=== PATIENT | male | born 1970 | race Caucasian/White ===

== ENCOUNTER 2024-11-02 14:40 | Outpatient (AMB) | payer OTHER, SELFPAY ==
--- NOTE | 2024-11-02 14:50 | MHC.OFFVIS ---
Vital Signs 11/02/24 14:51 Height 6 ft 1 in Weight 218 lb 4.122 oz BMI 28.8 BP 112/70 Blood Pressure Location Lt brachial Position Sitting Pulse 70 Pulse Source Pulse Oximeter Pulse Oximetry (%) 99 Oxygen Delivery Method Room Air Intake Visit Reasons: Asthma Intake Note: pt is here as a new patient for shortness of breath with exertion, stairs and walking fast, and exercise, he states no drive and no energy Project Drilling Engineer Required: No Allergies No Known Allergies Allergy (Verified 11/02/24 15:19) Medication List - Last Reconciled 11/02/24 by Alonso Massey MD atorvastatin 40 mg PO DAILY tirzepatide (weight loss) (Zepbound) mg subcut Do you need a note to return to daycare/school/sports/work: No HPI HPI Asthma: Details: 54 years old gentleman normally in good health, nonsmoker, reformed alcoholic. Who has been grossly overweight , but in the last 6 months or so he has lost significant weight, with the help of Zepbound. His main complaint is that for the past 6 months or so he gets short of breath when he walks fast or if he has to climb up stairs. He has to slow down his pace. He denies any cough or wheezing . He also denies chest pain or tightness of the chest. Prior to starting on Zepbound he was quite a heavy, his used to tell him that he snores a lot and also has respiratory pauses. Now that he has lost about 40 lb of weight, he does not snore and also no respiratory pauses. These symptoms, which have now almost resolved indicated that he did have obstructive sleep apnea prior to losing weight. He denies any symptoms of nasal allergies. Also denies any symptoms of bronchial asthma. [facility] Medical History (Updated 11/02/24 @ 15:31 by Alonso Massey MD) Obesity (BMI 30.0-34.9) Dyspnea on exertion Social History Patient Tobacco Use Status: Never used Tobacco Review of Systems Const All systems reviewed & are unremarkable except as noted in HPI and below Eyes Reports no additional complaints ENT Reports no additional complaints Card Denies chest pain and Reports dyspnea on exertion Resp Reports as per HPI and Reports dyspnea on exertion GI Reports no additional complaints Reports no additional complaints Musc Reports no additional complaints Skin/Breast Reports system reviewed and no additional complaints, except as documented Neuro Reports no additional complaints Psych Reports no additional complaints Endo Reports no additional complaints Brody/Lymph Reports no additional complaints Aller/Immun Reports no additional complaints Physical Exam Vital Signs: Last Vital Signs Pulse 70 11/02/24 14:51 BP 112/70 11/02/24 14:51 Pulse Ox 99 11/02/24 14:51 Oxygen Delivery Method Room Air 11/02/24 14:51 BMI result Body Mass Index 28.8 Const General: healthy appearing, comfortable, no acute distress, alert and awake Orientation/consciousness: patient oriented x3 HEENT Head: Yes normal to inspection General nose exam: No nasal polyps present and No nasal discharge present Face and sinus: Yes sinuses nontender Mouth: oropharynx abnormals (Narrow and crowded, Mallampati scale 3) Throat: Yes posterior oropharynx normal Eyes General: appearance normal, both eyes and all related structures Neck Neck: Yes normal visual inspection, Yes no lymphadenopathy, Yes trachea midline, Yes no JVD and Yes other (Neck circumference 16-1/2 inch) Thyroid: Thyroid normal Chest Chest palpation & inspection: normal inspection of the chest, normal palpation of entire chest wall and no tenderness Resp Effort & Inspection: normal respiratory effort Auscultation: clear to auscultation bilaterally, no crackles, no rhonchi and no wheezes Cardio Palpation: normal PMI Rate: regular rate Rhythm: regular rhythm Heart sounds: no gallops and no murmurs Peripheral pulses: Peripheral pulses 2+ throughout GI Palpation (GI): Soft to palpation, nontender, No hepatosplenomegaly present and no masses Auscultation: normal bowel sounds Back/Spine/Pelvis Thoracic/Lumbar Spine: thoracic and lumbar spine normal to inspection Skin General skin exam: no rashes or lesions noted Neuro General: patient oriented x3 and no focal motor deficits Cranial nerves: Yes CN's II-XII intact bilaterally Extrem General: Yes normal to inspection, Yes no clubbing, cyanosis or edema and Yes no calf tenderness Psych Appearance: grossly normal and well kempt Speech and movement: Normal speech and movement present Assessment & Plan Assessment & Plan (1) Dyspnea on exertion: Comment: His described dyspnea on exertion is very nonspecific. Possibilities can include , , anemia , poor conditioning, occult bronchial asthma, exertion related Code(s): R06.09 - Other forms of dyspnea Category: Medical Plan: Pulmonary function test is ordered. Chest x-ray ordered to rule out any parenchymal lung disease. CBC order to rule out anemia. Further plans are instructions would be after pulmonary function test. (2) Obesity (BMI 30.0-34.9): Comment: This gentleman does have history of gross obesity. And that was probably associated with his snoring and possible sleep apnea. Now he has lost significant weight and has only minimal degree of snoring, but no indication of sleep apnea Code(s): E66.811 - Obesity, class 1 Category: Medical Plan: I explained to him that he has done a great job in losing weight. He is advised to continue losing more weight Orders: Orders XR chest 2V Today R06.09 - Other forms of dyspnea PFT pulmonary function test Today R06.09 - Other forms of dyspnea Complete Blood Count Auto Diff Today R06.09 - Other forms of dyspnea Coding Level of Care Code New Pt Level 4 (09237) Diagnoses Dyspnea on exertion R06.09 Obesity (BMI 30.0-34.9) E66.811
[2024-11-02 14:51] VITALS: BP 112/70; PULSE 70; O2SAT 99; BMI 28.8
--- OUTSIDE RECORDS SUMMARY | 2024-11-02 16:58 | XMS_ITS | Patient Health Record ---
Author Organization [facility] [address] Address [address] [place] [address] Care Team Providers Care Profiler Hand Name Role Phone DANNI DARBY Unavailable [phone] BJORN LOPES Unavailable [phone] Allergies No Known Allergies Results Component Value Reference Range Notes VITAMIN D 1,25 DIHYDROXY Reviewed date:08/02/2024 06:51:05 PM Interpretation: Performing Lab: Notes/Report: Vitamin D, 1, 25-Dihydroxy 68 20-79 pg/mL Vitamin D 1, 25 dihydroxy levels should be primarily used to assess Vitamin D status in patients with renal disease and hypercalcemia. Vitamin D 1,25-dihydroxy levels are generally less than 5 pg/mL in end stage renal disease patients. The preferred initial test for assessing Vitamin D status in the general population is Vitamin D 25-hydroxy (VITD). Test performed at [facility], [facility] [place] [address] La Kaur MD, PhD - Form Tamper Operator [facility] TOTAL Reviewed date:07/30/2024 01:55:08 PM Interpretation: Performing Lab: Notes/Report: T4, Total 8.2 4.5-10.9 mcg/dL URINALYSIS WITH REFLEX MICRO SCOPIC Reviewed date:07/30/2024 01:55:08 PM Interpretation: Performing Lab: Notes/Report: Specific Jeffrey Urine 1.027 1.003-1.030 pH, Urine 5.5 5.0-8.0 pH Leukocytes, Urine Negative Negative Nitrite, Urine Negative Negative Protein, Urine Negative <=Trace mg/dL Glucose, Urine Negative Negative mg/dL Ketones, Urine Trace Negative mg/dL Urobilinogen, Urine 0.2 0.2-1.0 mg/dL Bilirubin, Urine Negative Negative Blood, Urine Negative Negative PSA TOTAL, FREE AND COMPLEXE D Reviewed date:07/30/2024 01:55:08 PM Interpretation: Performing Lab: Notes/Report: Free PSA is a calculated value. The diagnostic usefulness of % free PSA has not been established in patients with Total PSA below 2.6 or above 10 ng/mL. This test was performed using the Centaur Chemiluminescent method. PSA values obtained with other methods cannot be used interchangeably. PSA 0.53 0.00-4.00 ng/mL PSA, Complexed 0.32 0.00-3.00 ng/mL PSA, Free 0.2 PSA, Free Pct 37.7 >25.0 % HEMOGLOBIN A1C Reviewed date:07/30/2024 01:55:08 PM Interpretation: Performing Lab: Notes/Report: Hemoglobin A1C 5.7 <6.5 % Mean Bld Glu Estim. 117 COMPREHENSIVE METABOLIC PANE L Reviewed date:07/30/2024 01:55:08 PM Interpretation: Performing Lab: Notes/Report: Sodium 141 133-145 mmol/L Potassium 4.2 3.5-5.5 mmol/L Chloride 109 96-110 mmol/L CO2 27 21-32 mmol/L Anion Gap 5 3-11 Glucose 87 70-100 mg/dL BUN 17 5-25 mg/dL Creatinine 1.08 0.70-1.30 mg/dL eGFR 82 >=60 mL/min/1.73m2 Calculati on based on the?Chronic Kidney Disease Epidemiology Collaboration (CKD-EPI) equation refit?without adjustment for race. BUN/Creatinine Ratio 15.7 Calcium 9.4 8.5-10.5 mg/dL AST (SGOT) 19 10-42 unit/L ALT (SGPT) 39 10-60 unit/L Alkaline Phosphatase 102 42-121 unit/L Total Protein 7.1 6.0-8.0 g/dL Albumin 4.1 3.2-5.0 g/dL Total Bilirubin 0.4 0.0-1.4 mg/dL THYROID STIMULATING HORMONE Reviewed date:07/30/2024 01:55:08 PM Interpretation: Performing Lab: Notes/Report: TSH 3.80 0.40-4.00 mcIU/mL LIPID PANEL WITH REFLEX TO D IRECT LDL Reviewed date:07/30/2024 01:55:08 PM Interpretation: Performing Lab: Notes/Report: Cholesterol 102 0-200 mg/dL Triglycerides 59 0-150 mg/dL HDL 44 >=40 mg/dL LDL Calculated 46 0-100 mg/dL VLDL Cholesterol Lucas 11.8 Non HDL Chol. (LDL+VLDL) 58 <145 mg/dL Chol/HDL Ratio 2.3 0.0-4.4 CBC WITH AUTO DIFFERENTIAL Reviewed date:07/30/2024 11:01:21 AM Interpretation: Performing Lab: Notes/Report: WBC 5.7 4.8-10.8 K/mcL RBC 5.20 4.50-5.50 M/mcL Hemoglobin 15.2 13.5-17.5 g/dL Hematocrit 46.3 42.0-54.0 % MCV 88.5 79.0-98.0 FL MCH 29.1 27.0-32.0 pcg MCHC 32.8 32.0-37.0 g/dL RDW 12.3 11.0-15.0 % Platelets 222 130-400 K/mcL MPV 10.2 7.0-11.0 FL NRBC 0.0 <1.0 % NRBC Absolute 0.00 <0.10 K/mcL Neutrophils Relative 63.8 Lymphocytes Relative 27.2 Monocytes Relative 7.3 Eosinophils Relative 0.9 Basophils Relative 0.5 Immature Granulocytes Relative 0.3 Neutrophils Absolute 3.66 1.50-7.00 K/mcL Lymphocytes Absolute 1.56 1.00-5.00 K/mcL Monocytes Absolute 0.42 0.20-1.00 K/mcL Eosinophils Absolute 0.05 0.00-0.50 K/mcL Basophils Absolute 0.03 0.00-0.20 K/mcL Immature Granulocytes Absolute 0.02 0.00-0.03 K/mcL MR Abdomen W WO Reviewed date:02/23/2024 02:58:15 PM Interpretation: Performing Lab: Notes/Report: Original Ordering Provider: DANNI DARBY NP [facility] Reason For Referral Reason Stress ECHO with PVC Diagnosis 1 SOB (shortness of br eath) (R06.02) Referral Organization [facility] [address] Referring Provider First Name BJORN Referring Provider Last Name MOSES Referring Provider Speciality Internal M edicine Referred Provider Specialty Cardiology General Notes [facility], [address] [place] [address]; [facility], [place], [phone], F [phone] Clinical Notes Rafaela Wilburn 2024 11:02:30 AM >Referral with notes and labs sent to [facility]., Raúl Murcia 10/28/2024 03:35:38 PM > lines are temporarily busy., Raúl Murcia 11/02/2024 01:01:52 PM > [phone]. Nasima, 10/28 patient cancelled, was scheduled with another facility. I called patient and he said he did not cancelled the appt but someone in our office cancelled it. I will text to patient the number of PVC to book an appt because he's driving. Referral Priority Routine Reason PFT with [facility] Diagnosis 1 Dyspnea, unspecified (R06.00) Referral Organization [facility] [address] Referring Provider First Name BJORN Referring Provider Last Name MOSES Referring Provider Speciality Internal M edicine Referred Provider Specialty Pulmonology General Notes [facility], [address] [place] [address]; [facility], [place] , P [phone], F [phone] Clinical Notes Rafaela Wilburn 2024 10:57:30 AM >Referral with notes and labs sent to [facility]. TY., Raúl Murcia 10/28/2024 03:39:17 PM >[phone] [phone]. Refaxed twice, Raúl Murcia 11/02/2024 01:11:12 PM > As per patient. He has an appt today 11/02/24. Referral Priority Routine Medications Medication SIG (Take, Route, Frequency, Duration) Notes Start Date End Date Status Atorvastatin Calcium 40 MG 1 tablet Oral ly Once a day for 90 days Active Zepbound 7.5 MG/0.5ML INJECT 7.5MG SUBCU TANEOUS WEEKLY 28 DAYS for 28 Active Problems Problem Type SNOMED Code ICD Code Onset Dates Problem Status W/U Status Risk Notes Problem 304259178 Other obesity du e to excess calories (E66.09) Active confirmed Problem 124669006 Encounter for general adult medical examination without abnormal findings (Z00.00) Active confirmed Problem Lipid screening (991005770) Encounter for screening for lipoid disorders (Z13.220) Active confirmed Problem 70464498 Hyperlipidemia, unspecified hyperlipidemia type (E78.5) Active confirmed Problem 50087245 Vitamin D deficiency (E55.9) Active confirmed Problem 420972941 Diabetes mellitu s screening (Z13.1) Active confirmed Problem 607458376 Body mass index [BMI] 33.0-33.9, adult (Z68.33) Active confirmed Problem Mixed hyperlipidemia (102688696) Hyperlipemia, mixed (E78.2) Active confirmed Problem 524710778 BMI 31.0-31.9,adult (Z68.31) Active confirmed Problem 737232671 BMI 30.0-30.9,adult (Z68.30) Active confirmed Problem 304064757 Overweight (BMI 25.0-29.9) (E66.3) Active confirmed Problem 951896049060 Daytime somnolence (R40.0) Active confirmed Problem Hypothyroidism (69157458) Adult hypothyroidism (E03.9) Active confirmed Problem Screening for malignant neoplasm of prostate (153176020) Encounter for prostate cancer screening (Z12.5) Active confirmed Problem 5926340 Pancreatic lesio n (K86.9) Active confirmed Vital Signs Heart Rate 79 /min 10/09/2024 Oximetry 97 % 10/09/2024 Blood pressure diastolic 84 mm Hg 10/09/2024 Height 72 in 10/09/2024 Blood pressure systolic 124 mm Hg 10/09/2024 Weight 208.9 lbs 10/09/2024 BMI 28.33 kg/m2 10/09/2024 Encounters Encounter Location Date Provider Diagnosis [facility] [address] [place] [id number] 02/13/2024 DANNI DARBY Hyperlipidemia, unspecified hyperlipidemia type E78.5 ; Annual physical exam Z00.00 ; Other obesity due to excess calories E66.09 ; Body mass index [BMI] 33.0-33.9, adult Z68.33 ; Other fatigue R53.83 and Pancreatic lesion K86.[address] [facility] [address] [place] [address] 02/21/2024 DANNI DARBY Other obesity due to excess calories E66.09 ; Body mass index [BMI] 33.0-33.9, adult Z68.33 ; Dietary counseling and surveillance Z71.3 ; Hyperlipidemia, unspecified hyperlipidemia type E78.5 ; Pancreatic lesion K86.9 and Prediabetes R73.[address] [facility] [address] [place], [place] 03/20/2024 DANNI BORHOT Other obesity due to excess calories E66.09 ; BMI 31.0-31.9,adult Z68.31 ; Dietary counseling and surveillance Z71.3 ; Hyperlipidemia, unspecified hyperlipidemia type E78.5 ; Pancreatic lesion K86.9 and Prediabetes R73.[address] [facility] [address] [place], [place] 04/24/2024 DANNI BORHOT Other obesity due to excess calories E66.09 ; BMI 30.0-30.9,adult Z68.30 ; Dietary counseling and surveillance Z71.3 ; Hyperlipidemia, unspecified hyperlipidemia type E78.5 ; Pancreatic lesion K86.9 and Prediabetes R73.[address] [facility] [address] [place], [place] 05/22/2024 DANNI BORHOT Overweight (BMI 25.0-29.9) E66.3 ; BMI 29.0-29.9,adult Z68.29 ; Dietary counseling and surveillance Z71.3 ; Hyperlipidemia, unspecified hyperlipidemia type E78.5 ; Pancreatic lesion K86.9 and Prediabetes R73.[address] [facility] [address] [place], [place] 06/26/2024 DANNI BORHOT Overweight (BMI 25.0-29.9) E66.3 ; BMI 29.0-29.9,adult Z68.29 ; Dietary counseling and surveillance Z71.3 ; Hyperlipidemia, unspecified hyperlipidemia type E78.5 ; Pancreatic lesion K86.9 and Prediabetes R73.03 [facility] [address] [place] [phone] 07/30/2024 DANNI BORHOT Overweight (BMI 25.0-29.9) E66.3 ; BMI 29.0-29.9,adult Z68.29 ; Dietary counseling and surveillance Z71.3 ; Hyperlipidemia, unspecified hyperlipidemia type E78.5 ; Pancreatic lesion K86.9 and Prediabetes R73.[address] [facility] [address] [place], [place] 08/28/2024 DANNICAMILLA MARTINEZT Overweight (BMI 25.0-29.9) E66.3 ; BMI 29.0-29.9,adult Z68.29 ; Dietary counseling and surveillance Z71.3 ; Hyperlipidemia, unspecified hyperlipidemia type E78.5 ; Pancreatic lesion K86.9 ; Prediabetes R73.03 and MEI (dyspnea on exertion) R06.[address] [facility] [address] [place], [place] 10/09/2024 BJORN MOSES Overweight (BMI 25.0-29.9) E66.3 ; BMI 28.0-28.9,adult Z68.28 ; Prediabetes R73.03 ; Dietary counseling and surveillance Z71.3 ; Hyperlipidemia, unspecified hyperlipidemia type E78.5 ; Pancreatic lesion K86.9 and MEI (dyspnea on exertion) R06.09 [facility] [address] [phone] 02/16/2024 DANNI MARTINEZT Pancreatic lesion K8 6.9 [facility] [address] [phone] 02/24/2024 DANNI BORHOT [facility] [address] [address] 03/02/2024 DANNI MARTINEZT Other obesity due to excess calories E66.09 [facility] [address] [facility] [address] [phone] 05/31/2024 DANNI BORHOT [facility] [address] [place], [place] 06/10/2024 DANNI BORHOT [facility] [address] [place], [place] 08/28/2024 DANNI BORHOT [facility] [address] [place], [place] 10/09/2024 BJORN LOPES Assessments Encounter Date Diagnosis (ICD Code) Assessment Notes Treatment Notes Treatment Clinical Notes Section Notes 02/13/2024 Hyperlipidemia, unspecified hyperlipidemia type (ICD-10 - E78.5) Acute Concerns/Problem List: 02/13/2024 Labs otherwise stable *We will follow-up and make sure MRI of the abdomen with contrast to assess pancreatic lesion gets done Interested in formal weight management consult this will be arranged Will see him back in 6 months with labs ASCVD is a stepwise approach for all adult patients, including those with known ASCVD This risk estimate is a standardized guideline to predict risk and recommend management strategies for those at risk of ASCVD Risk of cardiovascular event (Coronary or stroke or nonfatal ME or stroke) In the next 10 years We discussed the role of cholesterol and atherosclerosis. Cholesterols broken down into some particles. Cholesterol very important for her body and has an important role in the synthesis of various hormones and neurotransmitters. However, today's cholesterol can have potential complications. Small density LDL particles that are oxidized or particularly dangerous. HDL cholesterol can have a protective effect. Elevated triglycerides levels are also dangerous. An elevated triglyceride and HDL ratio could be a sign of insulin resistance. Statins, fibrates, niacin, fish oil, DHEA, can be beneficial in treatment of dyslipidemia. Lifestyle modification with exercise and appropriate nutrition can decrease the risk of atherosclerosis due to dyslipidemia. Lowering low-density lipoprotein cholesterol (LDL-C) via lifestyle change or pharmacologic therapy can reduce the risk of atherosclerotic cardiovascular disease (ASCVD) in people without established CVD. This approach to CVD prevention is called primary prevention. The rationale for LDL-C reduction is based upon observational and clinical trial evidence that lowering of LDL-C in patients across a broad range of LDL-C levels reduces a patient's risk of CVD. CVD in this context refers to fatal or nonfatal myocardial infarction, acute coronary syndrome, sudden cardiac , coronary artery revascularization, stroke, and peripheral arterial disease. In all patients, a healthy diet, physical activity, and maintaining a healthy weight are all important for overall health and should be pursued apart from whether they reduce LDL-C. Therefore, we recommend that all patients with high LDL-C undergo lifestyle modifications of aerobic exercise and potential statin, , Zetia, PCSK9 drugs. We discussed in detail the management of diabetes mellitus. Emphasis was paid on nutrition, low carbohydrate diet with good fat and protein sources, fruits and vegetables was discussed. Exercise was recommended. Incorporation of daily walking into a routine was discussed. A pedometer goal of 10,000 steps was discussed. Management of diabetes mellitus along with medications to treat the condition was discussed. Importance of diabetic foot exam, diabetic eye exam, urine microalbumin analysis annually was discussed. Side effects of diabetic medications were discussed again. Patient agrees to take medications as prescribed and comply with lifestyle modifications. Of note, some information is being carried forward from prior records for informational purposes only and is being cited so that efficiency, safety and quality of the patient's care is not compromised This note was prepared using voice recognition software and direct typing Please excuse inadvertent solution sales senior executive or typing errors, or uncorrected word substitutions Although every attempt has been made by the provider to proofread this document, occasional misspellings and typographical errors may still be present Due to the previous pandemic, and the use of personal protective equipment (PPE) This may decrease voice recognition accuracy Inadvertent solution sales senior executive errors may occur 02/13/2024 Annual physical exam (ICD-10 - Z00.00) Acute Concerns/Problem List: 02/13/2024 Labs otherwise stable *We will follow-up and make sure MRI of the abdomen with contrast to assess pancreatic lesion gets done Interested in formal weight management consult this will be arranged Will see him back in 6 months with labs ASCVD is a stepwise approach for all adult patients, including those with known ASCVD This risk estimate is a standardized guideline to predict risk and recommend management strategies for those at risk of ASCVD Risk of cardiovascular event (Coronary or stroke or nonfatal ME or stroke) In the next 10 years We discussed the role of cholesterol and atherosclerosis. Cholesterols broken down into some particles. Cholesterol very important for her body and has an important role in the synthesis of various hormones and neurotransmitters. However, today's cholesterol can have potential complications. Small density LDL particles that are oxidized or particularly dangerous. HDL cholesterol can have a protective effect. Elevated triglycerides levels are also dangerous. An elevated triglyceride and HDL ratio could be a sign of insulin resistance. Statins, fibrates, niacin, fish oil, DHEA, can be beneficial in treatment of dyslipidemia. Lifestyle modification with exercise and appropriate nutrition can decrease the risk of atherosclerosis due to dyslipidemia. Lowering low-density lipoprotein cholesterol (LDL-C) via lifestyle change or pharmacologic therapy can reduce the risk of atherosclerotic cardiovascular disease (ASCVD) in people without established CVD. This approach to CVD prevention is called primary prevention. The rationale for LDL-C reduction is based upon observational and clinical trial evidence that lowering of LDL-C in patients across a broad range of LDL-C levels reduces a patient's risk of CVD. CVD in this context refers to fatal or nonfatal myocardial infarction, acute coronary syndrome, sudden cardiac , coronary artery revascularization, stroke, and peripheral arterial disease. In all patients, a healthy diet, physical activity, and maintaining a healthy weight are all important for overall health and should be pursued apart from whether they reduce LDL-C. Therefore, we recommend that all patients with high LDL-C undergo lifestyle modifications of aerobic exercise and potential statin, , Zetia, PCSK9 drugs. We discussed in detail the management of diabetes mellitus. Emphasis was paid on nutrition, low carbohydrate diet with good fat and protein sources, fruits and vegetables was discussed. Exercise was recommended. Incorporation of daily walking into a routine was discussed. A pedometer goal of 10,000 steps was discussed. Management of diabetes mellitus along with medications to treat the condition was discussed. Importance of diabetic foot exam, diabetic eye exam, urine microalbumin analysis annually was discussed. Side effects of diabetic medications were discussed again. Patient agrees to take medications as prescribed and comply with lifestyle modifications. Of note, some information is being carried forward from prior records for informational purposes only and is being cited so that efficiency, safety and quality of the patient's care is not compromised This note was prepared using voice recognition software and direct typing Please excuse inadvertent solution sales senior executive or typing errors, or uncorrected word substitutions Although every attempt has been made by the provider to proofread this document, occasional misspellings and typographical errors may still be present Due to the previous pandemic, and the use of personal protective equipment (PPE) This may decrease voice recognition accuracy Inadvertent solution sales senior executive errors may occur 02/16/2024 Pancreatic lesion (ICD-10 - K86.9) 02/21/2024 Other obesity due to excess calories (ICD-10 - E66.09) #Weight Management 02/21/2024 Follow-up on MRI of the abdomen to assess pancreatic lesion Start Zepbound 2.5 mg Severance candidate for dual incretin given prediabetic state and metabolic syndrome, obesity BMI Total time spent today was 30 minutes of which greater than 50% was spent on coordinating and counseling Patient has been found to be obese with a BMI of (32). Patient has class (1) obesity. We are a board certified obesity and weight management practice Patient has trialed behavioral modification, dietary restrictions and exercise for a minimum of 6 months The most recent [place] [employer] of clinical endocrinologists and [place] [employer] guidelines recommend patients who have overweight BMI or obesity BMI, who also have metabolic syndrome, prediabetes, HLD, and other comorbidities or at risk of developing type 2 diabetes should aim for a weight loss goal of at least 10% of the baseline body weight Patient counseled regarding effects of GLP/GIP-1 agonists, and other FDA approved wgt loss meds with regards to a multifactorial approach of weight loss as mentioned above and not solely appetite suppression. We have discussed the mechanism of GLP-1's/GIP, dual incretins, appetitite suppressants I think this would be fantastic option for her given her metabolic workup and body composition We have discussed the risks and benefits and side effects including/and not limited to Sarcopenia, intestinal obstruction, constipation, nausea, lethargy, headache Discussed importance of protein consumption for muscle maintenance as well as strength and resistance training ,probiotics, B12 complex biotin , iron and other nutrients, To help avoid telogen effluvium We have discussed the lifelong requirement of nutritional supplementation And adherence to an exercise regimen as well as importance of follow-up We did discuss the neurohormonal changes that are occurring with these medications and Need for long-term Continued usage Obesity is a chronic metabolic disease with multiple etiologies including genetic, metabolic, biochemical, intestinal biome related treatment of obesity after weight gain or after weight loss has stopped is justified Studies have shown that there is a decrease in the bodies metabolic rate and increase in hunger The patient understands and agrees There is no history of medullary thyroid cancer or multiple endocrine neoplasia There is also no history of cardiovascular disease, hypertension, palpitations, or arrhythmias In the setting of potential stimulant/amphetamin e use such as phentermine We have also discussed risks and benefits, and the use of compounded medications to help offset the national shortages as well as financial implications vs trade name drugs Patient was reassured and welcomed to the practice. We discussed that we stress a hollistic medical approach with emphasis on lifestyle modification. Patient was informed that a healthy lifestyle with exercise and good eating habits can help reduce his risk of medical complications. He is explained that obesity increases his risk of diabetes, cardiovascular disease, or organ damage. We spent a lot of time discussing the relationship between food, exercise, sleep, mental health and obesity. Patient was counseled on the importance EATING local, organic food when possible. Patient was educated on clean 15 and dirty dozen. I provided information about reading books called The Food Rules by Mike Gaming and Eat Fat Get Lean by Dr Mik Mckeon. Self education is important in the journey for weight management. Encourage good sleep hygiene Optimize sleep/wake cycles 6-8 hours nightly Keep lights on his stimulus during the day Darkroom and minimize nighttime interruptions Continue melatonin, other sleep aid medications Patient was offered diagnostic testing. We want to measure visceral adiposity, advanced body composition, adverse lipids, fatty acid balance, risk for heart disease and atherosclerosis, markers of inflammation and genetic susceptibility. Patient was counseled on weight management and was advised to lose weight using A. Meal Replacement Products We discussed the lifelong requirement of nutritional supplementation and adherence to an exercise regimen as well as importance of dietary follow-up Patient was educated on the replacement products called optifast. This is a good way of taking fixed amount of calories. It has been shown in studies to be ineffective weight management tool. We also recommend maintaining adequate protein intake and muscle composition, 1.5mg/kg This however has to be coupled with lifestyle intervention as well as laboratory data and EKG monitoring. It is impossible to know how a person will tolerate complete meal replacement. The side effects of meal replacement and weight loss could include syncopal attacks, dizziness, gallstones, potential cholecystectomy, possible heart attack and even . The benefits of meal replacement would be potential weight loss but no guarantees can be made. Meal replacement products are not covered by insurance. Once the patient has bought these products we cannot return them B. Lifestyle management which includes several strategies as below 1. Eat a low carbohydrate good fat good protein diet. Eliminate refined carbohydrates from the diet. Continue blood sugar and sugared beverages. Eat local organic when possible. Cook your own meals. Read food labels. None about healthy snacks. Portion control and food with low glycemic index 2. Exercise regularly. Try to get at least 6000 steps a day. Use a predominant to track activity level. Consider using apps like En[employer]zni, myfitnesspal, lose it, stick as needed for self-monitoring and weight management. Consider group exercises. Consider hiring a personal lines account executive. Regular exercise is mercado to sustainable health and prevents as a buffer against weight regain 3. Sleep is most important for healing. Tried to sleep at least 8 hours a night. A good quality sleep needs a sleep ritual with ideal room temperature of around 68. It might help to take a shower and have no electronics in the room and sleep in a very dark room without artificial light. Start her sleep routine and get up early in the morning and go to bed on time ASCVD is a stepwise approach for all adult patients, including those with known ASCVD This risk estimate is a standardized guideline to predict risk and recommend management strategies for those at risk of ASCVD Risk of cardiovascular event (Coronary or stroke or nonfatal ME or stroke) In the next 10 years We discussed the role of cholesterol and atherosclerosis. Cholesterols broken down into some particles. Cholesterol very important for her body and has an important role in the synthesis of various hormones and neurotransmitters. However, today's cholesterol can have potential complications. Small density LDL particles that are oxidized or particularly dangerous. HDL cholesterol can have a protective effect. Elevated triglycerides levels are also dangerous. An elevated triglyceride and HDL ratio could be a sign of insulin resistance. Statins, fibrates, niacin, fish oil, DHEA, can be beneficial in treatment of dyslipidemia. Lifestyle modification with exercise and appropriate nutrition can decrease the risk of atherosclerosis due to dyslipidemia. Lowering low-density lipoprotein cholesterol (LDL-C) via lifestyle change or pharmacologic therapy can reduce the risk of atherosclerotic cardiovascular disease (ASCVD) in people without established CVD. This approach to CVD prevention is called primary prevention. The rationale for LDL-C reduction is based upon observational and clinical trial evidence that lowering of LDL-C in patients across a broad range of LDL-C levels reduces a patient's risk of CVD. CVD in this context refers to fatal or nonfatal myocardial infarction, acute coronary syndrome, sudden cardiac , coronary artery revascularization, stroke, and peripheral arterial disease. In all patients, a healthy diet, physical activity, and maintaining a healthy weight are all important for overall health and should be pursued apart from whether they reduce LDL-C. Therefore, we recommend that all patients with high LDL-C undergo lifestyle modifications of aerobic exercise and potential statin, , Zetia, PCSK9 drugs. We discussed in detail the management of diabetes mellitus. Emphasis was paid on nutrition, low carbohydrate diet with good fat and protein sources, fruits and vegetables was discussed. Exercise was recommended. Incorporation of daily walking into a routine was discussed. A pedometer goal of 10,000 steps was discussed. Management of diabetes mellitus along with medications to treat the condition was discussed. Importance of diabetic foot exam, diabetic eye exam, urine microalbumin analysis annually was discussed. Side effects of diabetic medications were discussed again. Patient agrees to take medications as prescribed and comply with lifestyle modifications. Of note, some information is being carried forward from prior records for informational purposes only and is being cited so that efficiency, safety and quality of the patient's care is not compromised This note was prepared using voice recognition software and direct typing Please excuse inadvertent solution sales senior executive or typing errors, or uncorrected word substitutions Although every attempt has been made by the provider to proofread this document, occasional misspellings and typographical errors may still be present Due to the previous pandemic, and the use of personal protective equipment (PPE) This may decrease voice recognition accuracy Inadvertent solution sales senior executive errors may occur 02/21/2024 Body mass index [BMI] 33.0-33.9, adult (ICD-10 - Z68.33) #Weight Management 02/21/2024 Follow-up on MRI of the abdomen to assess pancreatic lesion Start Zepbound 2.5 mg Severance candidate for dual incretin given prediabetic state and metabolic syndrome, obesity BMI Total time spent today was 30 minutes of which greater than 50% was spent on coordinating and counseling Patient has been found to be obese with a BMI of (32). Patient has class (1) obesity. We are a board certified obesity and weight management practice Patient has trialed behavioral modification, dietary restrictions and exercise for a minimum of 6 months The most recent [place] [employer]ocrin[employer] and [place] [employer] guidelines recommend patients who have overweight BMI or obesity BMI, who also have metabolic syndrome, prediabetes, HLD, and other comorbidities or at risk of developing type 2 diabetes should aim for a weight loss goal of at least 10% of the baseline body weight Patient counseled regarding effects of GLP/GIP-1 agonists, and other FDA approved wgt loss meds with regards to a multifactorial approach of weight loss as mentioned above and not solely appetite suppression. We have discussed the mechanism of GLP-1's/GIP, dual incretins, appetitite suppressants I think this would be fantastic option for her given her metabolic workup and body composition We have discussed the risks and benefits and side effects including/and not limited to Sarcopenia, intestinal obstruction, constipation, nausea, lethargy, headache Discussed importance of protein consumption for muscle maintenance as well as strength and resistance training ,probiotics, B12 complex biotin , iron and other nutrients, To help avoid telogen effluvium We have discussed the lifelong requirement of nutritional supplementation And adherence to an exercise regimen as well as importance of follow-up We did discuss the neurohormonal changes that are occurring with these medications and Need for long-term Continued usage Obesity is a chronic metabolic disease with multiple etiologies including genetic, metabolic, biochemical, intestinal biome related treatment of obesity after weight gain or after weight loss has stopped is justified Studies have shown that there is a decrease in the bodies metabolic rate and increase in hunger The patient understands and agrees There is no history of medullary thyroid cancer or multiple endocrine neoplasia There is also no history of cardiovascular disease, hypertension, palpitations, or arrhythmias In the setting of potential stimulant/amphetamin e use such as phentermine We have also discussed risks and benefits, and the use of compounded medications to help offset the national shortages as well as financial implications vs trade name drugs Patient was reassured and welcomed to the practice. We discussed that we stress a hollistic medical approach with emphasis on lifestyle modification. Patient was informed that a healthy lifestyle with exercise and good eating habits can help reduce his risk of medical complications. He is explained that obesity increases his risk of diabetes, cardiovascular disease, or organ damage. We spent a lot of time discussing the relationship between food, exercise, sleep, mental health and obesity. Patient was counseled on the importance EATING local, organic food when possible. Patient was educated on clean 15 and dirty dozen. I provided information about reading books called The Food Rules by Mike Gaming and Eat Fat Get Lean by Dr Mik Mckeon. Self education is important in the journey for weight management. Encourage good sleep hygiene Optimize sleep/wake cycles 6-8 hours nightly Keep lights on his stimulus during the day Darkroom and minimize nighttime interruptions Continue melatonin, other sleep aid medications Patient was offered diagnostic testing. We want to measure visceral adiposity, advanced body composition, adverse lipids, fatty acid balance, risk for heart disease and atherosclerosis, markers of inflammation and genetic susceptibility. Patient was counseled on weight management and was advised to lose weight using A. Meal Replacement Products We discussed the lifelong requirement of nutritional supplementation and adherence to an exercise regimen as well as importance of dietary follow-up Patient was educated on the replacement products called optifast. This is a good way of taking fixed amount of calories. It has been shown in studies to be ineffective weight management tool. We also recommend maintaining adequate protein intake and muscle composition, 1.5mg/kg This however has to be coupled with lifestyle intervention as well as laboratory data and EKG monitoring. It is impossible to know how a person will tolerate complete meal replacement. The side effects of meal replacement and weight loss could include syncopal attacks, dizziness, gallstones, potential cholecystectomy, possible heart attack and even . The benefits of meal replacement would be potential weight loss but no guarantees can be made. Meal replacement products are not covered by insurance. Once the patient has bought these products we cannot return them B. Lifestyle management which includes several strategies as below 1. Eat a low carbohydrate good fat good protein diet. Eliminate refined carbohydrates from the diet. Continue blood sugar and sugared beverages. Eat local organic when possible. Cook your own meals. Read food labels. None about healthy snacks. Portion control and food with low glycemic index 2. Exercise regularly. Try to get at least 6000 steps a day. Use a predominant to track activity level. Consider using apps like Engezni, Geckoboardpal, lose it, stick as needed for self-monitoring and weight management. Consider group exercises. Consider hiring a personal lines account executive. Regular exercise is mercado to sustainable health and prevents as a buffer against weight regain 3. Sleep is most important for healing. Tried to sleep at least 8 hours a night. A good quality sleep needs a sleep ritual with ideal room temperature of around 68. It might help to take a shower and have no electronics in the room and sleep in a very dark room without artificial light. Start her sleep routine and get up early in the morning and go to bed on time ASCVD is a stepwise approach for all adult patients, including those with known ASCVD This risk estimate is a standardized guideline to predict risk and recommend management strategies for those at risk of ASCVD Risk of cardiovascular event (Coronary or stroke or nonfatal ME or stroke) In the next 10 years We discussed the role of cholesterol and atherosclerosis. Cholesterols broken down into some particles. Cholesterol very important for her body and has an important role in the synthesis of various hormones and neurotransmitters. However, today's cholesterol can have potential complications. Small density LDL particles that are oxidized or particularly dangerous. HDL cholesterol can have a protective effect. Elevated triglycerides levels are also dangerous. An elevated triglyceride and HDL ratio could be a sign of insulin resistance. Statins, fibrates, niacin, fish oil, DHEA, can be beneficial in treatment of dyslipidemia. Lifestyle modification with exercise and appropriate nutrition can decrease the risk of atherosclerosis due to dyslipidemia. Lowering low-density lipoprotein cholesterol (LDL-C) via lifestyle change or pharmacologic therapy can reduce the risk of atherosclerotic cardiovascular disease (ASCVD) in people without established CVD. This approach to CVD prevention is called primary prevention. The rationale for LDL-C reduction is based upon observational and clinical trial evidence that lowering of LDL-C in patients across a broad range of LDL-C levels reduces a patient's risk of CVD. CVD in this context refers to fatal or nonfatal myocardial infarction, acute coronary syndrome, sudden cardiac , coronary artery revascularization, stroke, and peripheral arterial disease. In all patients, a healthy diet, physical activity, and maintaining a healthy weight are all important for overall health and should be pursued apart from whether they reduce LDL-C. Therefore, we recommend that all patients with high LDL-C undergo lifestyle modifications of aerobic exercise and potential statin, , Zetia, PCSK9 drugs. We discussed in detail the management of diabetes mellitus. Emphasis was paid on nutrition, low carbohydrate diet with good fat and protein sources, fruits and vegetables was discussed. Exercise was recommended. Incorporation of daily walking into a routine was discussed. A pedometer goal of 10,000 steps was discussed. Management of diabetes mellitus along with medications to treat the condition was discussed. Importance of diabetic foot exam, diabetic eye exam, urine microalbumin analysis annually was discussed. Side effects of diabetic medications were discussed again. Patient agrees to take medications as prescribed and comply with lifestyle modifications. Of note, some information is being carried forward from prior records for informational purposes only and is being cited so that efficiency, safety and quality of the patient's care is not compromised This note was prepared using voice recognition software and direct typing Please excuse inadvertent solution sales senior executive or typing errors, or uncorrected word substitutions Although every attempt has been made by the provider to proofread this document, occasional misspellings and typographical errors may still be present Due to the previous pandemic, and the use of personal protective equipment (PPE) This may decrease voice recognition accuracy Inadvertent solution sales senior executive errors may occur 03/02/2024 Other obesity due to excess calories (ICD-10 - E66.09) 03/20/2024 Other obesity due to excess calories (ICD-10 - E66.09) #Weight Management 03/19/2024 incr Zepbound to 5 mg Severance candidate for dual incretin given prediabetic state and metabolic syndrome, obesity BMI Total time spent today was 30 minutes of which greater than 50% was spent on coordinating and counseling Patient has been found to be obese with a BMI of (31). Patient has class (1) obesity. We are a board certified obesity and weight management practice Patient has trialed behavioral modification, dietary restrictions and exercise for a minimum of 6 months The most recent [place] [employer]ocrin[employer] and [place] [employer] guidelines recommend patients who have overweight BMI or obesity BMI, who also have metabolic syndrome, prediabetes, HLD, and other comorbidities or at risk of developing type 2 diabetes should aim for a weight loss goal of at least 10% of the baseline body weight Patient counseled regarding effects of GLP/GIP-1 agonists, and other FDA approved wgt loss meds with regards to a multifactorial approach of weight loss as mentioned above and not solely appetite suppression. Of note, some information is being carried forward from prior records for informational purposes only and is being cited so that efficiency, safety and quality of the patient's care is not compromised This note was prepared using voice recognition software and direct typing Please excuse inadvertent solution sales senior executive or typing errors, or uncorrected word substitutions Although every attempt has been made by the provider to proofread this document, occasional misspellings and typographical errors may still be present Due to the previous pandemic, and the use of personal protective equipment (PPE) This may decrease voice recognition accuracy Inadvertent solution sales senior executive errors may occur 03/20/2024 BMI 31.0-31.9,adult (ICD-10 - Z68.31) #Weight Management 03/19/2024 incr Zepbound to 5 mg Severance candidate for dual incretin given prediabetic state and metabolic syndrome, obesity BMI Total time spent today was 30 minutes of which greater than 50% was spent on coordinating and counseling Patient has been found to be obese with a BMI of (31). Patient has class (1) obesity. We are a board certified obesity and weight management practice Patient has trialed behavioral modification, dietary restrictions and exercise for a minimum of 6 months The most recent [place] [employer]ocrin[employer] and [place] [employer] guidelines recommend patients who have overweight BMI or obesity BMI, who also have metabolic syndrome, prediabetes, HLD, and other comorbidities or at risk of developing type 2 diabetes should aim for a weight loss goal of at least 10% of the baseline body weight Patient counseled regarding effects of GLP/GIP-1 agonists, and other FDA approved wgt loss meds with regards to a multifactorial approach of weight loss as mentioned above and not solely appetite suppression. Of note, some information is being carried forward from prior records for informational purposes only and is being cited so that efficiency, safety and quality of the patient's care is not compromised This note was prepared using voice recognition software and direct typing Please excuse inadvertent solution sales senior executive or typing errors, or uncorrected word substitutions Although every attempt has been made by the provider to proofread this document, occasional misspellings and typographical errors may still be present Due to the previous pandemic, and the use of personal protective equipment (PPE) This may decrease voice recognition accuracy Inadvertent solution sales senior executive errors may occur 04/24/2024 Other obesity due to excess calories (ICD-10 - E66.09) #Weight Management 04/24/2024 cont Zepbound 5 mg thriving Total time spent today was 30 minutes of which greater than 50% was spent on coordinating and counseling Patient has been found to be obese with a BMI of (30). Patient has class (1) obesity. We are a board certified obesity and weight management practice Patient has trialed behavioral modification, dietary restrictions and exercise for a minimum of 6 months The most recent [place] [employer]ocrin[employer] and [place] [employer] guidelines recommend patients who have overweight BMI or obesity BMI, who also have metabolic syndrome, prediabetes, HLD, and other comorbidities or at risk of developing type 2 diabetes should aim for a weight loss goal of at least 10% of the baseline body weight Patient counseled regarding effects of GLP/GIP-1 agonists, and other FDA approved wgt loss meds with regards to a multifactorial approach of weight loss as mentioned above and not solely appetite suppression. Of note, some information is being carried forward from prior records for informational purposes only and is being cited so that efficiency, safety and quality of the patient's care is not compromised This note was prepared using voice recognition software and direct typing Please excuse inadvertent solution sales senior executive or typing errors, or uncorrected word substitutions Although every attempt has been made by the provider to proofread this document, occasional misspellings and typographical errors may still be present Due to the previous pandemic, and the use of personal protective equipment (PPE) This may decrease voice recognition accuracy Inadvertent solution sales senior executive errors may occur 04/24/2024 BMI 30.0-30.9,adult (ICD-10 - Z68.30) #Weight Management 04/24/2024 cont Zepbound 5 mg thriving Total time spent today was 30 minutes of which greater than 50% was spent on coordinating and counseling Patient has been found to be obese with a BMI of (30). Patient has class (1) obesity. We are a board certified obesity and weight management practice Patient has trialed behavioral modification, dietary restrictions and exercise for a minimum of 6 months The most recent [place] [employer]ocrin[employer] and [place] [employer] guidelines recommend patients who have overweight BMI or obesity BMI, who also have metabolic syndrome, prediabetes, HLD, and other comorbidities or at risk of developing type 2 diabetes should aim for a weight loss goal of at least 10% of the baseline body weight Patient counseled regarding effects of GLP/GIP-1 agonists, and other FDA approved wgt loss meds with regards to a multifactorial approach of weight loss as mentioned above and not solely appetite suppression. Of note, some information is being carried forward from prior records for informational purposes only and is being cited so that efficiency, safety and quality of the patient's care is not compromised This note was prepared using voice recognition software and direct typing Please excuse inadvertent solution sales senior executive or typing errors, or uncorrected word substitutions Although every attempt has been made by the provider to proofread this document, occasional misspellings and typographical errors may still be present Due to the previous pandemic, and the use of personal protective equipment (PPE) This may decrease voice recognition accuracy Inadvertent solution sales senior executive errors may occur 05/22/2024 Overweight (BMI 25.0-29.9) (ICD-10 - E66.3) #Weight Management 05/22/2024 Increased to 7.5 mg of Zepbound Total time spent today was 30 minutes of which greater than 50% was spent on coordinating and counseling Patient has been found to be overweight with a BMI of (29). Patient has overweight class per BMI standards We are a board certified obesity and weight management practice Patient has trialed behavioral modification, dietary restrictions and exercise for a minimum of 6 months The most recent [place] [employer]ocrin[employer] and [place] [employer] guidelines recommend patients who have overweight BMI or obesity BMI, who also have metabolic syndrome, prediabetes, HLD, and other comorbidities or at risk of developing type 2 diabetes should aim for a weight loss goal of at least 10% of the baseline body weight Patient counseled regarding effects of GLP/GIP-1 agonists, and other FDA approved wgt loss meds with regards to a multifactorial approach of weight loss as mentioned above and not solely appetite suppression. Of note, some information is being carried forward from prior records for informational purposes only and is being cited so that efficiency, safety and quality of the patient's care is not compromised This note was prepared using voice recognition software and direct typing Please excuse inadvertent solution sales senior executive or typing errors, or uncorrected word substitutions Although every attempt has been made by the provider to proofread this document, occasional misspellings and typographical errors may still be present Due to the previous pandemic, and the use of personal protective equipment (PPE) This may decrease voice recognition accuracy Inadvertent solution sales senior executive errors may occur 06/26/2024 Overweight (BMI 25.0-29.9) (ICD-10 - E66.3) #Weight Management 06/26/2024oronary calcium CT score referral _update comprehensive labs Continue current dosing at 7.5 mg Increased to 7.5 mg of Zepbound Total time spent today was 30 minutes of which greater than 50% was spent on coordinating and counseling Patient has been found to be overweight with a BMI of (29). Patient has overweight class per BMI standards Of note, some information is being carried forward from prior records for informational purposes only and is being cited so that efficiency, safety and quality of the patient's care is not compromised This note was prepared using voice recognition software and direct typing Please excuse inadvertent solution sales senior executive or typing errors, or uncorrected word substitutions Although every attempt has been made by the provider to proofread this document, occasional misspellings and typographical errors may still be present Due to the previous pandemic, and the use of personal protective equipment (PPE) This may decrease voice recognition accuracy Inadvertent solution sales senior executive errors may occur 07/30/2024 Overweight (BMI 25.0-29.9) (ICD-10 - E66.3) #Weight Management 07/30/2024 _update labs this morning Nutritional and exercise counselling provided Continue Zepbound 7.5mg inj Coroary calcium CT on 07/09/24 revealing score 14.9 with calcium deposits mostly in the LAD artery. to cont statin F/U in 6 weeks Total time spent today was 30 minutes of which greater than 50% was spent on coordinating and counseling Patient has been found to be overweight with a BMI of (29). Patient has overweight class per BMI standards Of note, some information is being carried forward from prior records for informational purposes only and is being cited so that efficiency, safety and quality of the patient's care is not compromised This note was prepared using voice recognition software and direct typing Please excuse inadvertent solution sales senior executive or typing errors, or uncorrected word substitutions Although every attempt has been made by the provider to proofread this document, occasional misspellings and typographical errors may still be present Due to the previous pandemic, and the use of personal protective equipment (PPE) This may decrease voice recognition accuracy Inadvertent solution sales senior executive errors may occur 08/28/2024 Overweight (BMI 25.0-29.9) (ICD-10 - E66.3) #Weight Management 08/28/[address] score @ 14.9, Lipids look good at goal Continue current dosing at Zepbound 7.5 mg stress echo pulm for PFT's Total time spent today was 30 minutes of which greater than 50% was spent on coordinating and counseling Patient has been found to be overweight with a BMI of (29). Patient has overweight class per BMI standards Of note, some information is being carried forward from prior records for informational purposes only and is being cited so that efficiency, safety and quality of the patient's care is not compromised This note was prepared using voice recognition software and direct typing Please excuse inadvertent solution sales senior executive or typing errors, or uncorrected word substitutions Although every attempt has been made by the provider to proofread this document, occasional misspellings and typographical errors may still be present Due to the previous pandemic, and the use of personal protective equipment (PPE) This may decrease voice recognition accuracy Inadvertent solution sales senior executive errors may occur 10/09/2024 BMI 28.0-28.9,adult (ICD-10 - Z68.28) Manpreet is a pleasant 54-year-old male with a past medical history hyperlipidemia weight gain who presents to the office today for weight management follow-up currently on Zepbound 7.5 mg 10/09/2024: BMI 28.3, weight 208.9 patient last reading at 218 on August 28, 2024. Congratulated on 10 pounds of fat loss, however patient did lose 4 pounds of muscle, therefore educated to increase his cardiovascular exercise with weightlifting.Contin ue Zepbound 7.5 mg, patient would not benefit from increase in dose as he has not been increasing his muscle mass. #Shortness of breath: Patient states he intermittently experiences shortness of breath, patient would benefit from pulmonary function testing completed by pulmonology and a stress echocardiogram. Will order stress echocardiogram today and place referral for pulmonary function testing today. Patient is here for weight management followup. We focused on significance of healthy lifestyle changes. We talked about need to track steps, work on portion control, read food labels, get adequate sleep, give adequate rest of the body, meditate, frequent nutritious meals including vegetables and healthy choices of meat and elimination of refined carbohydrates. We also talked about mindfulness and mindful eating. Particular focus was on lifestyle Total time spent was 30 minutes with greater than 50% spent on counseling and coordinating care All questions have been answered to patient's satisfaction. Patient verbalized understanding of diagnosis and treatments explained. Advised to call sooner prior to next visit it any questions/concerns arise. Case discussed with Tk SMART who reviewed the assessment and plan. Chart, medications, labs, vital signs reviewed. Dictation was accomplished with the use of [employer] voice recognition software, which is prone to medical misidentifications and grammatical errors. This are unintentional and the practitioner does try to identify and correct these, but some could still be present. Please do not hesitate to contact practitioner for clarification. 10/09/2024 Overweight (BMI 25.0-29.9) (ICD-10 - E66.3) Manpreet is a pleasant 54-year-old male with a past medical history hyperlipidemia weight gain who presents to the office today for weight management follow-up currently on Zepbound 7.5 mg 10/09/2024: BMI 28.3, weight 208.9 patient last reading at 218 on August 28, 2024. Congratulated on 10 pounds of fat loss, however patient did lose 4 pounds of muscle, therefore educated to increase his cardiovascular exercise with weightlifting.Contin ue Zepbound 7.5 mg, patient would not benefit from increase in dose as he has not been increasing his muscle mass. #Shortness of breath: Patient states he intermittently experiences shortness of breath, patient would benefit from pulmonary function testing completed by pulmonology and a stress echocardiogram. Will order stress echocardiogram today and place referral for pulmonary function testing today. Patient is here for weight management followup. We focused on significance of healthy lifestyle changes. We talked about need to track steps, work on portion control, read food labels, get adequate sleep, give adequate rest of the body, meditate, frequent nutritious meals including vegetables and healthy choices of meat and elimination of refined carbohydrates. We also talked about mindfulness and mindful eating. Particular focus was on lifestyle Total time spent was 30 minutes with greater than 50% spent on counseling and coordinating care All questions have been answered to patient's satisfaction. Patient verbalized understanding of diagnosis and treatments explained. Advised to call sooner prior to next visit it any questions/concerns arise. Case discussed with Tk SMART who reviewed the assessment and plan. Chart, medications, labs, vital signs reviewed. Dictation was accomplished with the use of [employer] voice recognition software, which is prone to medical misidentifications and grammatical errors. This are unintentional and the practitioner does try to identify and correct these, but some could still be present. Please do not hesitate to contact practitioner for clarification. 10/09/2024 Prediabetes (ICD-10 - R73.03) Manpreet is a pleasant 54-year-old male with a past medical history hyperlipidemia weight gain who presents to the office today for weight management follow-up currently on Zepbound 7.5 mg 10/09/2024: BMI 28.3, weight 208.9 patient last reading at 218 on August 28, 2024. Congratulated on 10 pounds of fat loss, however patient did lose 4 pounds of muscle, therefore educated to increase his cardiovascular exercise with weightlifting.Contin ue Zepbound 7.5 mg, patient would not benefit from increase in dose as he has not been increasing his muscle mass. #Shortness of breath: Patient states he intermittently experiences shortness of breath, patient would benefit from pulmonary function testing completed by pulmonology and a stress echocardiogram. Will order stress echocardiogram today and place referral for pulmonary function testing today. Patient is here for weight management followup. We focused on significance of healthy lifestyle changes. We talked about need to track steps, work on portion control, read food labels, get adequate sleep, give adequate rest of the body, meditate, frequent nutritious meals including vegetables and healthy choices of meat and elimination of refined carbohydrates. We also talked about mindfulness and mindful eating. Particular focus was on lifestyle Total time spent was 30 minutes with greater than 50% spent on counseling and coordinating care All questions have been answered to patient's satisfaction. Patient verbalized understanding of diagnosis and treatments explained. Advised to call sooner prior to next visit it any questions/concerns arise. Case discussed with Tk SMART who reviewed the assessment and plan. Chart, medications, labs, vital signs reviewed. Dictation was accomplished with the use of [employer] voice recognition software, which is prone to medical misidentifications and grammatical errors. This are unintentional and the practitioner does try to identify and correct these, but some could still be present. Please do not hesitate to contact practitioner for clarification. 08/28/2024 BMI 29.0-29.9,adult (ICD-10 - Z68.29) #Weight Management 08/28/[address] score @ 14.9, Lipids look good at goal Continue current dosing at Zepbound 7.5 mg stress echo pulm for PFT's Total time spent today was 30 minutes of which greater than 50% was spent on coordinating and counseling Patient has been found to be overweight with a BMI of (29). Patient has overweight class per BMI standards Of note, some information is being carried forward from prior records for informational purposes only and is being cited so that efficiency, safety and quality of the patient's care is not compromised This note was prepared using voice recognition software and direct typing Please excuse inadvertent solution sales senior executive or typing errors, or uncorrected word substitutions Although every attempt has been made by the provider to proofread this document, occasional misspellings and typographical errors may still be present Due to the previous pandemic, and the use of personal protective equipment (PPE) This may decrease voice recognition accuracy Inadvertent solution sales senior executive errors may occur 07/30/2024 BMI 29.0-29.9,adult (ICD-10 - Z68.29) #Weight Management 07/30/2024 _update labs this morning Nutritional and exercise counselling provided Continue Zepbound 7.5mg inj Coroary calcium CT on 07/09/24 revealing score 14.9 with calcium deposits mostly in the LAD artery. to cont statin F/U in 6 weeks Total time spent today was 30 minutes of which greater than 50% was spent on coordinating and counseling Patient has been found to be overweight with a BMI of (29). Patient has overweight class per BMI standards Of note, some information is being carried forward from prior records for informational purposes only and is being cited so that efficiency, safety and quality of the patient's care is not compromised This note was prepared using voice recognition software and direct typing Please excuse inadvertent solution sales senior executive or typing errors, or uncorrected word substitutions Although every attempt has been made by the provider to proofread this document, occasional misspellings and typographical errors may still be present Due to the previous pandemic, and the use of personal protective equipment (PPE) This may decrease voice recognition accuracy Inadvertent solution sales senior executive errors may occur 05/22/2024 BMI 29.0-29.9,adult (ICD-10 - Z68.29) #Weight Management 05/22/2024 Increased to 7.5 mg of Zepbound Total time spent today was 30 minutes of which greater than 50% was spent on coordinating and counseling Patient has been found to be overweight with a BMI of (29). Patient has overweight class per BMI standards We are a board certified obesity and weight management practice Patient has trialed behavioral modification, dietary restrictions and exercise for a minimum of 6 months The most recent [place] [employer]ocrin[employer] and [place] [employer] guidelines recommend patients who have overweight BMI or obesity BMI, who also have metabolic syndrome, prediabetes, HLD, and other comorbidities or at risk of developing type 2 diabetes should aim for a weight loss goal of at least 10% of the baseline body weight Patient counseled regarding effects of GLP/GIP-1 agonists, and other FDA approved wgt loss meds with regards to a multifactorial approach of weight loss as mentioned above and not solely appetite suppression. Of note, some information is being carried forward from prior records for informational purposes only and is being cited so that efficiency, safety and quality of the patient's care is not compromised This note was prepared using voice recognition software and direct typing Please excuse inadvertent solution sales senior executive or typing errors, or uncorrected word substitutions Although every attempt has been made by the provider to proofread this document, occasional misspellings and typographical errors may still be present Due to the previous pandemic, and the use of personal protective equipment (PPE) This may decrease voice recognition accuracy Inadvertent solution sales senior executive errors may occur 06/26/2024 BMI 29.0-29.9,adult (ICD-10 - Z68.29) #Weight Management 5Coronary calcium CT score referral _update comprehensive labs Continue current dosing at 7.5 mg Increased to 7.5 mg of Zepbound Total time spent today was 30 minutes of which greater than 50% was spent on coordinating and counseling Patient has been found to be overweight with a BMI of (29). Patient has overweight class per BMI standards Of note, some information is being carried forward from prior records for informational purposes only and is being cited so that efficiency, safety and quality of the patient's care is not compromised This note was prepared using voice recognition software and direct typing Please excuse inadvertent solution sales senior executive or typing errors, or uncorrected word substitutions Although every attempt has been made by the provider to proofread this document, occasional misspellings and typographical errors may still be present Due to the previous pandemic, and the use of personal protective equipment (PPE) This may decrease voice recognition accuracy Inadvertent solution sales senior executive errors may occur 04/24/2024 Dietary counseling and surveillance (ICD-10 - Z71.3) #Weight Management 04/24/2024 cont Zepbound 5 mg thriving Total time spent today was 30 minutes of which greater than 50% was spent on coordinating and counseling Patient has been found to be obese with a BMI of (30). Patient has class (1) obesity. We are a board certified obesity and weight management practice Patient has trialed behavioral modification, dietary restrictions and exercise for a minimum of 6 months The most recent [place] [employer]in[employer] and [place] [employer] guidelines recommend patients who have overweight BMI or obesity BMI, who also have metabolic syndrome, prediabetes, HLD, and other comorbidities or at risk of developing type 2 diabetes should aim for a weight loss goal of at least 10% of the baseline body weight Patient counseled regarding effects of GLP/GIP-1 agonists, and other FDA approved wgt loss meds with regards to a multifactorial approach of weight loss as mentioned above and not solely appetite suppression. Of note, some information is being carried forward from prior records for informational purposes only and is being cited so that efficiency, safety and quality of the patient's care is not compromised This note was prepared using voice recognition software and direct typing Please excuse inadvertent solution sales senior executive or typing errors, or uncorrected word substitutions Although every attempt has been made by the provider to proofread this document, occasional misspellings and typographical errors may still be present Due to the previous pandemic, and the use of personal protective equipment (PPE) This may decrease voice recognition accuracy Inadvertent solution sales senior executive errors may occur 03/20/2024 Dietary counseling and surveillance (ICD-10 - Z71.3) #Weight Management 03/19/2024 incr Zepbound to 5 mg Severance candidate for dual incretin given prediabetic state and metabolic syndrome, obesity BMI Total time spent today was 30 minutes of which greater than 50% was spent on coordinating and counseling Patient has been found to be obese with a BMI of (31). Patient has class (1) obesity. We are a board certified obesity and weight management practice Patient has trialed behavioral modification, dietary restrictions and exercise for a minimum of 6 months The most recent [place] [employer]in[employer] and [place] [employer] guidelines recommend patients who have overweight BMI or obesity BMI, who also have metabolic syndrome, prediabetes, HLD, and other comorbidities or at risk of developing type 2 diabetes should aim for a weight loss goal of at least 10% of the baseline body weight Patient counseled regarding effects of GLP/GIP-1 agonists, and other FDA approved wgt loss meds with regards to a multifactorial approach of weight loss as mentioned above and not solely appetite suppression. Of note, some information is being carried forward from prior records for informational purposes only and is being cited so that efficiency, safety and quality of the patient's care is not compromised This note was prepared using voice recognition software and direct typing Please excuse inadvertent solution sales senior executive or typing errors, or uncorrected word substitutions Although every attempt has been made by the provider to proofread this document, occasional misspellings and typographical errors may still be present Due to the previous pandemic, and the use of personal protective equipment (PPE) This may decrease voice recognition accuracy Inadvertent solution sales senior executive errors may occur 02/13/2024 Other obesity due to excess calories (ICD-10 - E66.09) Acute Concerns/Problem List: 02/13/2024 Labs otherwise stable *We will follow-up and make sure MRI of the abdomen with contrast to assess pancreatic lesion gets done Interested in formal weight management consult this will be arranged Will see him back in 6 months with labs ASCVD is a stepwise approach for all adult patients, including those with known ASCVD This risk estimate is a standardized guideline to predict risk and recommend management strategies for those at risk of ASCVD Risk of cardiovascular event (Coronary or stroke or nonfatal ME or stroke) In the next 10 years We discussed the role of cholesterol and atherosclerosis. Cholesterols broken down into some particles. Cholesterol very important for her body and has an important role in the synthesis of various hormones and neurotransmitters. However, today's cholesterol can have potential complications. Small density LDL particles that are oxidized or particularly dangerous. HDL cholesterol can have a protective effect. Elevated triglycerides levels are also dangerous. An elevated triglyceride and HDL ratio could be a sign of insulin resistance. Statins, fibrates, niacin, fish oil, DHEA, can be beneficial in treatment of dyslipidemia. Lifestyle modification with exercise and appropriate nutrition can decrease the risk of atherosclerosis due to dyslipidemia. Lowering low-density lipoprotein cholesterol (LDL-C) via lifestyle change or pharmacologic therapy can reduce the risk of atherosclerotic cardiovascular disease (ASCVD) in people without established CVD. This approach to CVD prevention is called primary prevention. The rationale for LDL-C reduction is based upon observational and clinical trial evidence that lowering of LDL-C in patients across a broad range of LDL-C levels reduces a patient's risk of CVD. CVD in this context refers to fatal or nonfatal myocardial infarction, acute coronary syndrome, sudden cardiac , coronary artery revascularization, stroke, and peripheral arterial disease. In all patients, a healthy diet, physical activity, and maintaining a healthy weight are all important for overall health and should be pursued apart from whether they reduce LDL-C. Therefore, we recommend that all patients with high LDL-C undergo lifestyle modifications of aerobic exercise and potential statin, , Zetia, PCSK9 drugs. We discussed in detail the management of diabetes mellitus. Emphasis was paid on nutrition, low carbohydrate diet with good fat and protein sources, fruits and vegetables was discussed. Exercise was recommended. Incorporation of daily walking into a routine was discussed. A pedometer goal of 10,000 steps was discussed. Management of diabetes mellitus along with medications to treat the condition was discussed. Importance of diabetic foot exam, diabetic eye exam, urine microalbumin analysis annually was discussed. Side effects of diabetic medications were discussed again. Patient agrees to take medications as prescribed and comply with lifestyle modifications. Of note, some information is being carried forward from prior records for informational purposes only and is being cited so that efficiency, safety and quality of the patient's care is not compromised This note was prepared using voice recognition software and direct typing Please excuse inadvertent solution sales senior executive or typing errors, or uncorrected word substitutions Although every attempt has been made by the provider to proofread this document, occasional misspellings and typographical errors may still be present Due to the previous pandemic, and the use of personal protective equipment (PPE) This may decrease voice recognition accuracy Inadvertent solution sales senior executive errors may occur 02/21/2024 Dietary counseling and surveillance (ICD-10 - Z71.3) #Weight Management 02/21/2024 Follow-up on MRI of the abdomen to assess pancreatic lesion Start Zepbound 2.5 mg Severance candidate for dual incretin given prediabetic state and metabolic syndrome, obesity BMI Total time spent today was 30 minutes of which greater than 50% was spent on coordinating and counseling Patient has been found to be obese with a BMI of (32). Patient has class (1) obesity. We are a board certified obesity and weight management practice Patient has trialed behavioral modification, dietary restrictions and exercise for a minimum of 6 months The most recent [place] [employer]in[employer] and [place] [employer] guidelines recommend patients who have overweight BMI or obesity BMI, who also have metabolic syndrome, prediabetes, HLD, and other comorbidities or at risk of developing type 2 diabetes should aim for a weight loss goal of at least 10% of the baseline body weight Patient counseled regarding effects of GLP/GIP-1 agonists, and other FDA approved wgt loss meds with regards to a multifactorial approach of weight loss as mentioned above and not solely appetite suppression. We have discussed the mechanism of GLP-1's/GIP, dual incretins, appetitite suppressants I think this would be fantastic option for her given her metabolic workup and body composition We have discussed the risks and benefits and side effects including/and not limited to Sarcopenia, intestinal obstruction, constipation, nausea, lethargy, headache Discussed importance of protein consumption for muscle maintenance as well as strength and resistance training ,probiotics, B12 complex biotin , iron and other nutrients, To help avoid telogen effluvium We have discussed the lifelong requirement of nutritional supplementation And adherence to an exercise regimen as well as importance of follow-up We did discuss the neurohormonal changes that are occurring with these medications and Need for long-term Continued usage Obesity is a chronic metabolic disease with multiple etiologies including genetic, metabolic, biochemical, intestinal biome related treatment of obesity after weight gain or after weight loss has stopped is justified Studies have shown that there is a decrease in the bodies metabolic rate and increase in hunger The patient understands and agrees There is no history of medullary thyroid cancer or multiple endocrine neoplasia There is also no history of cardiovascular disease, hypertension, palpitations, or arrhythmias In the setting of potential stimulant/amphetamin e use such as phentermine We have also discussed risks and benefits, and the use of compounded medications to help offset the national shortages as well as financial implications vs trade name drugs Patient was reassured and welcomed to the practice. We discussed that we stress a hollistic medical approach with emphasis on lifestyle modification. Patient was informed that a healthy lifestyle with exercise and good eating habits can help reduce his risk of medical complications. He is explained that obesity increases his risk of diabetes, cardiovascular disease, or organ damage. We spent a lot of time discussing the relationship between food, exercise, sleep, mental health and obesity. Patient was counseled on the importance EATING local, organic food when possible. Patient was educated on clean 15 and dirty dozen. I provided information about reading books called The Food Rules by Mike Gaming and Eat Fat Get Lean by Dr Mik Mckeon. Self education is important in the journey for weight management. Encourage good sleep hygiene Optimize sleep/wake cycles 6-8 hours nightly Keep lights on his stimulus during the day Darkroom and minimize nighttime interruptions Continue melatonin, other sleep aid medications Patient was offered diagnostic testing. We want to measure visceral adiposity, advanced body composition, adverse lipids, fatty acid balance, risk for heart disease and atherosclerosis, markers of inflammation and genetic susceptibility. Patient was counseled on weight management and was advised to lose weight using A. Meal Replacement Products We discussed the lifelong requirement of nutritional supplementation and adherence to an exercise regimen as well as importance of dietary follow-up Patient was educated on the replacement products called optifast. This is a good way of taking fixed amount of calories. It has been shown in studies to be ineffective weight management tool. We also recommend maintaining adequate protein intake and muscle composition, 1.5mg/kg This however has to be coupled with lifestyle intervention as well as laboratory data and EKG monitoring. It is impossible to know how a person will tolerate complete meal replacement. The side effects of meal replacement and weight loss could include syncopal attacks, dizziness, gallstones, potential cholecystectomy, possible heart attack and even . The benefits of meal replacement would be potential weight loss but no guarantees can be made. Meal replacement products are not covered by insurance. Once the patient has bought these products we cannot return them B. Lifestyle management which includes several strategies as below 1. Eat a low carbohydrate good fat good protein diet. Eliminate refined carbohydrates from the diet. Continue blood sugar and sugared beverages. Eat local organic when possible. Cook your own meals. Read food labels. None about healthy snacks. Portion control and food with low glycemic index 2. Exercise regularly. Try to get at least 6000 steps a day. Use a predominant to track activity level. Consider using apps like [employer], myfitnesspal, lose it, stick as needed for self-monitoring and weight management. Consider group exercises. Consider hiring a personal lines account executive. Regular exercise is mercado to sustainable health and prevents as a buffer against weight regain 3. Sleep is most important for healing. Tried to sleep at least 8 hours a night. A good quality sleep needs a sleep ritual with ideal room temperature of around 68. It might help to take a shower and have no electronics in the room and sleep in a very dark room without artificial light. Start her sleep routine and get up early in the morning and go to bed on time ASCVD is a stepwise approach for all adult patients, including those with known ASCVD This risk estimate is a standardized guideline to predict risk and recommend management strategies for those at risk of ASCVD Risk of cardiovascular event (Coronary or stroke or nonfatal ME or stroke) In the next 10 years We discussed the role of cholesterol and atherosclerosis. Cholesterols broken down into some particles. Cholesterol very important for her body and has an important role in the synthesis of various hormones and neurotransmitters. However, today's cholesterol can have potential complications. Small density LDL particles that are oxidized or particularly dangerous. HDL cholesterol can have a protective effect. Elevated triglycerides levels are also dangerous. An elevated triglyceride and HDL ratio could be a sign of insulin resistance. Statins, fibrates, niacin, fish oil, DHEA, can be beneficial in treatment of dyslipidemia. Lifestyle modification with exercise and appropriate nutrition can decrease the risk of atherosclerosis due to dyslipidemia. Lowering low-density lipoprotein cholesterol (LDL-C) via lifestyle change or pharmacologic therapy can reduce the risk of atherosclerotic cardiovascular disease (ASCVD) in people without established CVD. This approach to CVD prevention is called primary prevention. The rationale for LDL-C reduction is based upon observational and clinical trial evidence that lowering of LDL-C in patients across a broad range of LDL-C levels reduces a patient's risk of CVD. CVD in this context refers to fatal or nonfatal myocardial infarction, acute coronary syndrome, sudden cardiac , coronary artery revascularization, stroke, and peripheral arterial disease. In all patients, a healthy diet, physical activity, and maintaining a healthy weight are all important for overall health and should be pursued apart from whether they reduce LDL-C. Therefore, we recommend that all patients with high LDL-C undergo lifestyle modifications of aerobic exercise and potential statin, , Zetia, PCSK9 drugs. We discussed in detail the management of diabetes mellitus. Emphasis was paid on nutrition, low carbohydrate diet with good fat and protein sources, fruits and vegetables was discussed. Exercise was recommended. Incorporation of daily walking into a routine was discussed. A pedometer goal of 10,000 steps was discussed. Management of diabetes mellitus along with medications to treat the condition was discussed. Importance of diabetic foot exam, diabetic eye exam, urine microalbumin analysis annually was discussed. Side effects of diabetic medications were discussed again. Patient agrees to take medications as prescribed and comply with lifestyle modifications. Of note, some information is being carried forward from prior records for informational purposes only and is being cited so that efficiency, safety and quality of the patient's care is not compromised This note was prepared using voice recognition software and direct typing Please excuse inadvertent solution sales senior executive or typing errors, or uncorrected word substitutions Although every attempt has been made by the provider to proofread this document, occasional misspellings and typographical errors may still be present Due to the previous pandemic, and the use of personal protective equipment (PPE) This may decrease voice recognition accuracy Inadvertent solution sales senior executive errors may occur 02/13/2024 Body mass index [BMI] 33.0-33.9, adult (ICD-10 - Z68.33) Acute Concerns/Problem List: 02/13/2024 Labs otherwise stable *We will follow-up and make sure MRI of the abdomen with contrast to assess pancreatic lesion gets done Interested in formal weight management consult this will be arranged Will see him back in 6 months with labs ASCVD is a stepwise approach for all adult patients, including those with known ASCVD This risk estimate is a standardized guideline to predict risk and recommend management strategies for those at risk of ASCVD Risk of cardiovascular event (Coronary or stroke or nonfatal ME or stroke) In the next 10 years We discussed the role of cholesterol and atherosclerosis. Cholesterols broken down into some particles. Cholesterol very important for her body and has an important role in the synthesis of various hormones and neurotransmitters. However, today's cholesterol can have potential complications. Small density LDL particles that are oxidized or particularly dangerous. HDL cholesterol can have a protective effect. Elevated triglycerides levels are also dangerous. An elevated triglyceride and HDL ratio could be a sign of insulin resistance. Statins, fibrates, niacin, fish oil, DHEA, can be beneficial in treatment of dyslipidemia. Lifestyle modification with exercise and appropriate nutrition can decrease the risk of atherosclerosis due to dyslipidemia. Lowering low-density lipoprotein cholesterol (LDL-C) via lifestyle change or pharmacologic therapy can reduce the risk of atherosclerotic cardiovascular disease (ASCVD) in people without established CVD. This approach to CVD prevention is called primary prevention. The rationale for LDL-C reduction is based upon observational and clinical trial evidence that lowering of LDL-C in patients across a broad range of LDL-C levels reduces a patient's risk of CVD. CVD in this context refers to fatal or nonfatal myocardial infarction, acute coronary syndrome, sudden cardiac , coronary artery revascularization, stroke, and peripheral arterial disease. In all patients, a healthy diet, physical activity, and maintaining a healthy weight are all important for overall health and should be pursued apart from whether they reduce LDL-C. Therefore, we recommend that all patients with high LDL-C undergo lifestyle modifications of aerobic exercise and potential statin, , Zetia, PCSK9 drugs. We discussed in detail the management of diabetes mellitus. Emphasis was paid on nutrition, low carbohydrate diet with good fat and protein sources, fruits and vegetables was discussed. Exercise was recommended. Incorporation of daily walking into a routine was discussed. A pedometer goal of 10,000 steps was discussed. Management of diabetes mellitus along with medications to treat the condition was discussed. Importance of diabetic foot exam, diabetic eye exam, urine microalbumin analysis annually was discussed. Side effects of diabetic medications were discussed again. Patient agrees to take medications as prescribed and comply with lifestyle modifications. Of note, some information is being carried forward from prior records for informational purposes only and is being cited so that efficiency, safety and quality of the patient's care is not compromised This note was prepared using voice recognition software and direct typing Please excuse inadvertent solution sales senior executive or typing errors, or uncorrected word substitutions Although every attempt has been made by the provider to proofread this document, occasional misspellings and typographical errors may still be present Due to the previous pandemic, and the use of personal protective equipment (PPE) This may decrease voice recognition accuracy Inadvertent solution sales senior executive errors may occur 02/21/2024 Hyperlipidemia, unspecified hyperlipidemia type (ICD-10 - E78.5) #Weight Management 02/21/2024 Follow-up on MRI of the abdomen to assess pancreatic lesion Start Zepbound 2.5 mg Severance candidate for dual incretin given prediabetic state and metabolic syndrome, obesity BMI Total time spent today was 30 minutes of which greater than 50% was spent on coordinating and counseling Patient has been found to be obese with a BMI of (32). Patient has class (1) obesity. We are a board certified obesity and weight management practice Patient has trialed behavioral modification, dietary restrictions and exercise for a minimum of 6 months The most recent [place] [employer]ocrin[employer] and [place] [employer] guidelines recommend patients who have overweight BMI or obesity BMI, who also have metabolic syndrome, prediabetes, HLD, and other comorbidities or at risk of developing type 2 diabetes should aim for a weight loss goal of at least 10% of the baseline body weight Patient counseled regarding effects of GLP/GIP-1 agonists, and other FDA approved wgt loss meds with regards to a multifactorial approach of weight loss as mentioned above and not solely appetite suppression. We have discussed the mechanism of GLP-1's/GIP, dual incretins, appetitite suppressants I think this would be fantastic option for her given her metabolic workup and body composition We have discussed the risks and benefits and side effects including/and not limited to Sarcopenia, intestinal obstruction, constipation, nausea, lethargy, headache Discussed importance of protein consumption for muscle maintenance as well as strength and resistance training ,probiotics, B12 complex biotin , iron and other nutrients, To help avoid telogen effluvium We have discussed the lifelong requirement of nutritional supplementation And adherence to an exercise regimen as well as importance of follow-up We did discuss the neurohormonal changes that are occurring with these medications and Need for long-term Continued usage Obesity is a chronic metabolic disease with multiple etiologies including genetic, metabolic, biochemical, intestinal biome related treatment of obesity after weight gain or after weight loss has stopped is justified Studies have shown that there is a decrease in the bodies metabolic rate and increase in hunger The patient understands and agrees There is no history of medullary thyroid cancer or multiple endocrine neoplasia There is also no history of cardiovascular disease, hypertension, palpitations, or arrhythmias In the setting of potential stimulant/amphetamin e use such as phentermine We have also discussed risks and benefits, and the use of compounded medications to help offset the national shortages as well as financial implications vs trade name drugs Patient was reassured and welcomed to the practice. We discussed that we stress a hollistic medical approach with emphasis on lifestyle modification. Patient was informed that a healthy lifestyle with exercise and good eating habits can help reduce his risk of medical complications. He is explained that obesity increases his risk of diabetes, cardiovascular disease, or organ damage. We spent a lot of time discussing the relationship between food, exercise, sleep, mental health and obesity. Patient was counseled on the importance EATING local, organic food when possible. Patient was educated on clean 15 and dirty dozen. I provided information about reading books called The Food Rules by Mike Gaming and Eat Fat Get Lean by Dr Mik Mckeon. Self education is important in the journey for weight management. Encourage good sleep hygiene Optimize sleep/wake cycles 6-8 hours nightly Keep lights on his stimulus during the day Darkroom and minimize nighttime interruptions Continue melatonin, other sleep aid medications Patient was offered diagnostic testing. We want to measure visceral adiposity, advanced body composition, adverse lipids, fatty acid balance, risk for heart disease and atherosclerosis, markers of inflammation and genetic susceptibility. Patient was counseled on weight management and was advised to lose weight using A. Meal Replacement Products We discussed the lifelong requirement of nutritional supplementation and adherence to an exercise regimen as well as importance of dietary follow-up Patient was educated on the replacement products called optifast. This is a good way of taking fixed amount of calories. It has been shown in studies to be ineffective weight management tool. We also recommend maintaining adequate protein intake and muscle composition, 1.5mg/kg This however has to be coupled with lifestyle intervention as well as laboratory data and EKG monitoring. It is impossible to know how a person will tolerate complete meal replacement. The side effects of meal replacement and weight loss could include syncopal attacks, dizziness, gallstones, potential cholecystectomy, possible heart attack and even . The benefits of meal replacement would be potential weight loss but no guarantees can be made. Meal replacement products are not covered by insurance. Once the patient has bought these products we cannot return them B. Lifestyle management which includes several strategies as below 1. Eat a low carbohydrate good fat good protein diet. Eliminate refined carbohydrates from the diet. Continue blood sugar and sugared beverages. Eat local organic when possible. Cook your own meals. Read food labels. None about healthy snacks. Portion control and food with low glycemic index 2. Exercise regularly. Try to get at least 6000 steps a day. Use a predominant to track activity level. Consider using apps like Engezni, Geckoboardpal, lose it, stick as needed for self-monitoring and weight management. Consider group exercises. Consider hiring a personal lines account executive. Regular exercise is mercado to sustainable health and prevents as a buffer against weight regain 3. Sleep is most important for healing. Tried to sleep at least 8 hours a night. A good quality sleep needs a sleep ritual with ideal room temperature of around 68. It might help to take a shower and have no electronics in the room and sleep in a very dark room without artificial light. Start her sleep routine and get up early in the morning and go to bed on time ASCVD is a stepwise approach for all adult patients, including those with known ASCVD This risk estimate is a standardized guideline to predict risk and recommend management strategies for those at risk of ASCVD Risk of cardiovascular event (Coronary or stroke or nonfatal ME or stroke) In the next 10 years We discussed the role of cholesterol and atherosclerosis. Cholesterols broken down into some particles. Cholesterol very important for her body and has an important role in the synthesis of various hormones and neurotransmitters. However, today's cholesterol can have potential complications. Small density LDL particles that are oxidized or particularly dangerous. HDL cholesterol can have a protective effect. Elevated triglycerides levels are also dangerous. An elevated triglyceride and HDL ratio could be a sign of insulin resistance. Statins, fibrates, niacin, fish oil, DHEA, can be beneficial in treatment of dyslipidemia. Lifestyle modification with exercise and appropriate nutrition can decrease the risk of atherosclerosis due to dyslipidemia. Lowering low-density lipoprotein cholesterol (LDL-C) via lifestyle change or pharmacologic therapy can reduce the risk of atherosclerotic cardiovascular disease (ASCVD) in people without established CVD. This approach to CVD prevention is called primary prevention. The rationale for LDL-C reduction is based upon observational and clinical trial evidence that lowering of LDL-C in patients across a broad range of LDL-C levels reduces a patient's risk of CVD. CVD in this context refers to fatal or nonfatal myocardial infarction, acute coronary syndrome, sudden cardiac , coronary artery revascularization, stroke, and peripheral arterial disease. In all patients, a healthy diet, physical activity, and maintaining a healthy weight are all important for overall health and should be pursued apart from whether they reduce LDL-C. Therefore, we recommend that all patients with high LDL-C undergo lifestyle modifications of aerobic exercise and potential statin, , Zetia, PCSK9 drugs. We discussed in detail the management of diabetes mellitus. Emphasis was paid on nutrition, low carbohydrate diet with good fat and protein sources, fruits and vegetables was discussed. Exercise was recommended. Incorporation of daily walking into a routine was discussed. A pedometer goal of 10,000 steps was discussed. Management of diabetes mellitus along with medications to treat the condition was discussed. Importance of diabetic foot exam, diabetic eye exam, urine microalbumin analysis annually was discussed. Side effects of diabetic medications were discussed again. Patient agrees to take medications as prescribed and comply with lifestyle modifications. Of note, some information is being carried forward from prior records for informational purposes only and is being cited so that efficiency, safety and quality of the patient's care is not compromised This note was prepared using voice recognition software and direct typing Please excuse inadvertent solution sales senior executive or typing errors, or uncorrected word substitutions Although every attempt has been made by the provider to proofread this document, occasional misspellings and typographical errors may still be present Due to the previous pandemic, and the use of personal protective equipment (PPE) This may decrease voice recognition accuracy Inadvertent solution sales senior executive errors may occur 03/20/2024 Hyperlipidemia, unspecified hyperlipidemia type (ICD-10 - E78.5) #Weight Management 03/19/2024 incr Zepbound to 5 mg Severance candidate for dual incretin given prediabetic state and metabolic syndrome, obesity BMI Total time spent today was 30 minutes of which greater than 50% was spent on coordinating and counseling Patient has been found to be obese with a BMI of (31). Patient has class (1) obesity. We are a board certified obesity and weight management practice Patient has trialed behavioral modification, dietary restrictions and exercise for a minimum of 6 months The most recent [place] [employer]ocrin[employer] and [place] [employer] guidelines recommend patients who have overweight BMI or obesity BMI, who also have metabolic syndrome, prediabetes, HLD, and other comorbidities or at risk of developing type 2 diabetes should aim for a weight loss goal of at least 10% of the baseline body weight Patient counseled regarding effects of GLP/GIP-1 agonists, and other FDA approved wgt loss meds with regards to a multifactorial approach of weight loss as mentioned above and not solely appetite suppression. Of note, some information is being carried forward from prior records for informational purposes only and is being cited so that efficiency, safety and quality of the patient's care is not compromised This note was prepared using voice recognition software and direct typing Please excuse inadvertent solution sales senior executive or typing errors, or uncorrected word substitutions Although every attempt has been made by the provider to proofread this document, occasional misspellings and typographical errors may still be present Due to the previous pandemic, and the use of personal protective equipment (PPE) This may decrease voice recognition accuracy Inadvertent solution sales senior executive errors may occur 06/26/2024 Dietary counseling and surveillance (ICD-10 - Z71.3) #Weight Management 06/26/2024oronary calcium CT score referral _update comprehensive labs Continue current dosing at 7.5 mg Increased to 7.5 mg of Zepbound Total time spent today was 30 minutes of which greater than 50% was spent on coordinating and counseling Patient has been found to be overweight with a BMI of (29). Patient has overweight class per BMI standards Of note, some information is being carried forward from prior records for informational purposes only and is being cited so that efficiency, safety and quality of the patient's care is not compromised This note was prepared using voice recognition software and direct typing Please excuse inadvertent solution sales senior executive or typing errors, or uncorrected word substitutions Although every attempt has been made by the provider to proofread this document, occasional misspellings and typographical errors may still be present Due to the previous pandemic, and the use of personal protective equipment (PPE) This may decrease voice recognition accuracy Inadvertent solution sales senior executive errors may occur 05/22/2024 Dietary counseling and surveillance (ICD-10 - Z71.3) #Weight Management 05/22/2024 Increased to 7.5 mg of Zepbound Total time spent today was 30 minutes of which greater than 50% was spent on coordinating and counseling Patient has been found to be overweight with a BMI of (29). Patient has overweight class per BMI standards We are a board certified obesity and weight management practice Patient has trialed behavioral modification, dietary restrictions and exercise for a minimum of 6 months The most recent [place] [employer] and [place] [employer] guidelines recommend patients who have overweight BMI or obesity BMI, who also have metabolic syndrome, prediabetes, HLD, and other comorbidities or at risk of developing type 2 diabetes should aim for a weight loss goal of at least 10% of the baseline body weight Patient counseled regarding effects of GLP/GIP-1 agonists, and other FDA approved wgt loss meds with regards to a multifactorial approach of weight loss as mentioned above and not solely appetite suppression. Of note, some information is being carried forward from prior records for informational purposes only and is being cited so that efficiency, safety and quality of the patient's care is not compromised This note was prepared using voice recognition software and direct typing Please excuse inadvertent solution sales senior executive or typing errors, or uncorrected word substitutions Although every attempt has been made by the provider to proofread this document, occasional misspellings and typographical errors may still be present Due to the previous pandemic, and the use of personal protective equipment (PPE) This may decrease voice recognition accuracy Inadvertent solution sales senior executive errors may occur 04/24/2024 Hyperlipidemia, unspecified hyperlipidemia type (ICD-10 - E78.5) #Weight Management 04/24/2024 cont Zepbound 5 mg thriving Total time spent today was 30 minutes of which greater than 50% was spent on coordinating and counseling Patient has been found to be obese with a BMI of (30). Patient has class (1) obesity. We are a board certified obesity and weight management practice Patient has trialed behavioral modification, dietary restrictions and exercise for a minimum of 6 months The most recent [place] [employer] and [place] [employer] guidelines recommend patients who have overweight BMI or obesity BMI, who also have metabolic syndrome, prediabetes, HLD, and other comorbidities or at risk of developing type 2 diabetes should aim for a weight loss goal of at least 10% of the baseline body weight Patient counseled regarding effects of GLP/GIP-1 agonists, and other FDA approved wgt loss meds with regards to a multifactorial approach of weight loss as mentioned above and not solely appetite suppression. Of note, some information is being carried forward from prior records for informational purposes only and is being cited so that efficiency, safety and quality of the patient's care is not compromised This note was prepared using voice recognition software and direct typing Please excuse inadvertent solution sales senior executive or typing errors, or uncorrected word substitutions Although every attempt has been made by the provider to proofread this document, occasional misspellings and typographical errors may still be present Due to the previous pandemic, and the use of personal protective equipment (PPE) This may decrease voice recognition accuracy Inadvertent solution sales senior executive errors may occur 07/30/2024 Dietary counseling and surveillance (ICD-10 - Z71.3) #Weight Management 07/30/2024 _update labs this morning Nutritional and exercise counselling provided Continue Zepbound 7.5mg inj Coroary calcium CT on 07/09/24 revealing score 14.9 with calcium deposits mostly in the LAD artery. to cont statin F/U in 6 weeks Total time spent today was 30 minutes of which greater than 50% was spent on coordinating and counseling Patient has been found to be overweight with a BMI of (29). Patient has overweight class per BMI standards Of note, some information is being carried forward from prior records for informational purposes only and is being cited so that efficiency, safety and quality of the patient's care is not compromised This note was prepared using voice recognition software and direct typing Please excuse inadvertent solution sales senior executive or typing errors, or uncorrected word substitutions Although every attempt has been made by the provider to proofread this document, occasional misspellings and typographical errors may still be present Due to the previous pandemic, and the use of personal protective equipment (PPE) This may decrease voice recognition accuracy Inadvertent solution sales senior executive errors may occur 08/28/2024 Dietary counseling and surveillance (ICD-10 - Z71.3) #Weight Management 08/28/[address] score @ 14.9, Lipids look good at goal Continue current dosing at Zepbound 7.5 mg stress echo pulm for PFT's Total time spent today was 30 minutes of which greater than 50% was spent on coordinating and counseling Patient has been found to be overweight with a BMI of (29). Patient has overweight class per BMI standards Of note, some information is being carried forward from prior records for informational purposes only and is being cited so that efficiency, safety and quality of the patient's care is not compromised This note was prepared using voice recognition software and direct typing Please excuse inadvertent solution sales senior executive or typing errors, or uncorrected word substitutions Although every attempt has been made by the provider to proofread this document, occasional misspellings and typographical errors may still be present Due to the previous pandemic, and the use of personal protective equipment (PPE) This may decrease voice recognition accuracy Inadvertent solution sales senior executive errors may occur 10/09/2024 Dietary counseling and surveillance (ICD-10 - Z71.3) Manpreet is a pleasant 54-year-old male with a past medical history hyperlipidemia weight gain who presents to the office today for weight management follow-up currently on Zepbound 7.5 mg 10/09/2024: BMI 28.3, weight 208.9 patient last reading at 218 on August 28, 2024. Congratulated on 10 pounds of fat loss, however patient did lose 4 pounds of muscle, therefore educated to increase his cardiovascular exercise with weightlifting.Contin ue Zepbound 7.5 mg, patient would not benefit from increase in dose as he has not been increasing his muscle mass. #Shortness of breath: Patient states he intermittently experiences shortness of breath, patient would benefit from pulmonary function testing completed by pulmonology and a stress echocardiogram. Will order stress echocardiogram today and place referral for pulmonary function testing today. Patient is here for weight management followup. We focused on significance of healthy lifestyle changes. We talked about need to track steps, work on portion control, read food labels, get adequate sleep, give adequate rest of the body, meditate, frequent nutritious meals including vegetables and healthy choices of meat and elimination of refined carbohydrates. We also talked about mindfulness and mindful eating. Particular focus was on lifestyle Total time spent was 30 minutes with greater than 50% spent on counseling and coordinating care All questions have been answered to patient's satisfaction. Patient verbalized understanding of diagnosis and treatments explained. Advised to call sooner prior to next visit it any questions/concerns arise. Case discussed with Tk SMART who reviewed the assessment and plan. Chart, medications, labs, vital signs reviewed. Dictation was accomplished with the use of [employer] voice recognition software, which is prone to medical misidentifications and grammatical errors. This are unintentional and the practitioner does try to identify and correct these, but some could still be present. Please do not hesitate to contact practitioner for clarification. 10/09/2024 Hyperlipidemia, unspecified hyperlipidemia type (ICD-10 - E78.5) Manpreet is a pleasant 54-year-old male with a past medical history hyperlipidemia weight gain who presents to the office today for weight management follow-up currently on Zepbound 7.5 mg 10/09/2024: BMI 28.3, weight 208.9 patient last reading at 218 on August 28, 2024. Congratulated on 10 pounds of fat loss, however patient did lose 4 pounds of muscle, therefore educated to increase his cardiovascular exercise with weightlifting.Contin ue Zepbound 7.5 mg, patient would not benefit from increase in dose as he has not been increasing his muscle mass. #Shortness of breath: Patient states he intermittently experiences shortness of breath, patient would benefit from pulmonary function testing completed by pulmonology and a stress echocardiogram. Will order stress echocardiogram today and place referral for pulmonary function testing today. Patient is here for weight management followup. We focused on significance of healthy lifestyle changes. We talked about need to track steps, work on portion control, read food labels, get adequate sleep, give adequate rest of the body, meditate, frequent nutritious meals including vegetables and healthy choices of meat and elimination of refined carbohydrates. We also talked about mindfulness and mindful eating. Particular focus was on lifestyle Total time spent was 30 minutes with greater than 50% spent on counseling and coordinating care All questions have been answered to patient's satisfaction. Patient verbalized understanding of diagnosis and treatments explained. Advised to call sooner prior to next visit it any questions/concerns arise. Case discussed with Tk SMART who reviewed the assessment and plan. Chart, medications, labs, vital signs reviewed. Dictation was accomplished with the use of [employer] voice recognition software, which is prone to medical misidentifications and grammatical errors. This are unintentional and the practitioner does try to identify and correct these, but some could still be present. Please do not hesitate to contact practitioner for clarification. 08/28/2024 Hyperlipidemia, unspecified hyperlipidemia type (ICD-10 - E78.5) #Weight Management 08/28/[address] score @ 14.9, Lipids look good at goal Continue current dosing at Zepbound 7.5 mg stress echo pulm for PFT's Total time spent today was 30 minutes of which greater than 50% was spent on coordinating and counseling Patient has been found to be overweight with a BMI of (29). Patient has overweight class per BMI standards Of note, some information is being carried forward from prior records for informational purposes only and is being cited so that efficiency, safety and quality of the patient's care is not compromised This note was prepared using voice recognition software and direct typing Please excuse inadvertent solution sales senior executive or typing errors, or uncorrected word substitutions Although every attempt has been made by the provider to proofread this document, occasional misspellings and typographical errors may still be present Due to the previous pandemic, and the use of personal protective equipment (PPE) This may decrease voice recognition accuracy Inadvertent solution sales senior executive errors may occur 07/30/2024 Hyperlipidemia, unspecified hyperlipidemia type (ICD-10 - E78.5) #Weight Management 07/30/2024 _update labs this morning Nutritional and exercise counselling provided Continue Zepbound 7.5mg inj Coroary calcium CT on 07/09/24 revealing score 14.9 with calcium deposits mostly in the LAD artery. to cont statin F/U in 6 weeks Total time spent today was 30 minutes of which greater than 50% was spent on coordinating and counseling Patient has been found to be overweight with a BMI of (29). Patient has overweight class per BMI standards Of note, some information is being carried forward from prior records for informational purposes only and is being cited so that efficiency, safety and quality of the patient's care is not compromised This note was prepared using voice recognition software and direct typing Please excuse inadvertent solution sales senior executive or typing errors, or uncorrected word substitutions Although every attempt has been made by the provider to proofread this document, occasional misspellings and typographical errors may still be present Due to the previous pandemic, and the use of personal protective equipment (PPE) This may decrease voice recognition accuracy Inadvertent solution sales senior executive errors may occur 06/26/2024 Hyperlipidemia, unspecified hyperlipidemia type (ICD-10 - E78.5) #Weight Management 06/26/2024oronary calcium CT score referral _update comprehensive labs Continue current dosing at 7.5 mg Increased to 7.5 mg of Zepbound Total time spent today was 30 minutes of which greater than 50% was spent on coordinating and counseling Patient has been found to be overweight with a BMI of (29). Patient has overweight class per BMI standards Of note, some information is being carried forward from prior records for informational purposes only and is being cited so that efficiency, safety and quality of the patient's care is not compromised This note was prepared using voice recognition software and direct typing Please excuse inadvertent solution sales senior executive or typing errors, or uncorrected word substitutions Although every attempt has been made by the provider to proofread this document, occasional misspellings and typographical errors may still be present Due to the previous pandemic, and the use of personal protective equipment (PPE) This may decrease voice recognition accuracy Inadvertent solution sales senior executive errors may occur 05/22/2024 Hyperlipidemia, unspecified hyperlipidemia type (ICD-10 - E78.5) #Weight Management 05/22/2024 Increased to 7.5 mg of Zepbound Total time spent today was 30 minutes of which greater than 50% was spent on coordinating and counseling Patient has been found to be overweight with a BMI of (29). Patient has overweight class per BMI standards We are a board certified obesity and weight management practice Patient has trialed behavioral modification, dietary restrictions and exercise for a minimum of 6 months The most recent [place] [employer]ocrin[employer] and [place] [employer] guidelines recommend patients who have overweight BMI or obesity BMI, who also have metabolic syndrome, prediabetes, HLD, and other comorbidities or at risk of developing type 2 diabetes should aim for a weight loss goal of at least 10% of the baseline body weight Patient counseled regarding effects of GLP/GIP-1 agonists, and other FDA approved wgt loss meds with regards to a multifactorial approach of weight loss as mentioned above and not solely appetite suppression. Of note, some information is being carried forward from prior records for informational purposes only and is being cited so that efficiency, safety and quality of the patient's care is not compromised This note was prepared using voice recognition software and direct typing Please excuse inadvertent solution sales senior executive or typing errors, or uncorrected word substitutions Although every attempt has been made by the provider to proofread this document, occasional misspellings and typographical errors may still be present Due to the previous pandemic, and the use of personal protective equipment (PPE) This may decrease voice recognition accuracy Inadvertent solution sales senior executive errors may occur 03/20/2024 Pancreatic lesion (ICD-10 - K86.9) #Weight Management 03/19/2024 incr Zepbound to 5 mg Severance candidate for dual incretin given prediabetic state and metabolic syndrome, obesity BMI Total time spent today was 30 minutes of which greater than 50% was spent on coordinating and counseling Patient has been found to be obese with a BMI of (31). Patient has class (1) obesity. We are a board certified obesity and weight management practice Patient has trialed behavioral modification, dietary restrictions and exercise for a minimum of 6 months The most recent [place] [employer]ocrin[employer] and [place] [employer] guidelines recommend patients who have overweight BMI or obesity BMI, who also have metabolic syndrome, prediabetes, HLD, and other comorbidities or at risk of developing type 2 diabetes should aim for a weight loss goal of at least 10% of the baseline body weight Patient counseled regarding effects of GLP/GIP-1 agonists, and other FDA approved wgt loss meds with regards to a multifactorial approach of weight loss as mentioned above and not solely appetite suppression. Of note, some information is being carried forward from prior records for informational purposes only and is being cited so that efficiency, safety and quality of the patient's care is not compromised This note was prepared using voice recognition software and direct typing Please excuse inadvertent solution sales senior executive or typing errors, or uncorrected word substitutions Although every attempt has been made by the provider to proofread this document, occasional misspellings and typographical errors may still be present Due to the previous pandemic, and the use of personal protective equipment (PPE) This may decrease voice recognition accuracy Inadvertent solution sales senior executive errors may occur 04/24/2024 Pancreatic lesion (ICD-10 - K86.9) #Weight Management 04/24/2024 cont Zepbound 5 mg thriving Total time spent today was 30 minutes of which greater than 50% was spent on coordinating and counseling Patient has been found to be obese with a BMI of (30). Patient has class (1) obesity. We are a board certified obesity and weight management practice Patient has trialed behavioral modification, dietary restrictions and exercise for a minimum of 6 months The most recent [place] [employer]in[employer] and [place] [employer] guidelines recommend patients who have overweight BMI or obesity BMI, who also have metabolic syndrome, prediabetes, HLD, and other comorbidities or at risk of developing type 2 diabetes should aim for a weight loss goal of at least 10% of the baseline body weight Patient counseled regarding effects of GLP/GIP-1 agonists, and other FDA approved wgt loss meds with regards to a multifactorial approach of weight loss as mentioned above and not solely appetite suppression. Of note, some information is being carried forward from prior records for informational purposes only and is being cited so that efficiency, safety and quality of the patient's care is not compromised This note was prepared using voice recognition software and direct typing Please excuse inadvertent solution sales senior executive or typing errors, or uncorrected word substitutions Although every attempt has been made by the provider to proofread this document, occasional misspellings and typographical errors may still be present Due to the previous pandemic, and the use of personal protective equipment (PPE) This may decrease voice recognition accuracy Inadvertent solution sales senior executive errors may occur 02/13/2024 Other fatigue (ICD-10 - R53.83) Acute Concerns/Problem List: 02/13/2024 Labs otherwise stable *We will follow-up and make sure MRI of the abdomen with contrast to assess pancreatic lesion gets done Interested in formal weight management consult this will be arranged Will see him back in 6 months with labs ASCVD is a stepwise approach for all adult patients, including those with known ASCVD This risk estimate is a standardized guideline to predict risk and recommend management strategies for those at risk of ASCVD Risk of cardiovascular event (Coronary or stroke or nonfatal ME or stroke) In the next 10 years We discussed the role of cholesterol and atherosclerosis. Cholesterols broken down into some particles. Cholesterol very important for her body and has an important role in the synthesis of various hormones and neurotransmitters. However, today's cholesterol can have potential complications. Small density LDL particles that are oxidized or particularly dangerous. HDL cholesterol can have a protective effect. Elevated triglycerides levels are also dangerous. An elevated triglyceride and HDL ratio could be a sign of insulin resistance. Statins, fibrates, niacin, fish oil, DHEA, can be beneficial in treatment of dyslipidemia. Lifestyle modification with exercise and appropriate nutrition can decrease the risk of atherosclerosis due to dyslipidemia. Lowering low-density lipoprotein cholesterol (LDL-C) via lifestyle change or pharmacologic therapy can reduce the risk of atherosclerotic cardiovascular disease (ASCVD) in people without established CVD. This approach to CVD prevention is called primary prevention. The rationale for LDL-C reduction is based upon observational and clinical trial evidence that lowering of LDL-C in patients across a broad range of LDL-C levels reduces a patient's risk of CVD. CVD in this context refers to fatal or nonfatal myocardial infarction, acute coronary syndrome, sudden cardiac , coronary artery revascularization, stroke, and peripheral arterial disease. In all patients, a healthy diet, physical activity, and maintaining a healthy weight are all important for overall health and should be pursued apart from whether they reduce LDL-C. Therefore, we recommend that all patients with high LDL-C undergo lifestyle modifications of aerobic exercise and potential statin, , Zetia, PCSK9 drugs. We discussed in detail the management of diabetes mellitus. Emphasis was paid on nutrition, low carbohydrate diet with good fat and protein sources, fruits and vegetables was discussed. Exercise was recommended. Incorporation of daily walking into a routine was discussed. A pedometer goal of 10,000 steps was discussed. Management of diabetes mellitus along with medications to treat the condition was discussed. Importance of diabetic foot exam, diabetic eye exam, urine microalbumin analysis annually was discussed. Side effects of diabetic medications were discussed again. Patient agrees to take medications as prescribed and comply with lifestyle modifications. Of note, some information is being carried forward from prior records for informational purposes only and is being cited so that efficiency, safety and quality of the patient's care is not compromised This note was prepared using voice recognition software and direct typing Please excuse inadvertent solution sales senior executive or typing errors, or uncorrected word substitutions Although every attempt has been made by the provider to proofread this document, occasional misspellings and typographical errors may still be present Due to the previous pandemic, and the use of personal protective equipment (PPE) This may decrease voice recognition accuracy Inadvertent solution sales senior executive errors may occur 02/21/2024 Pancreatic lesion (ICD-10 - K86.9) #Weight Management 02/21/2024 Follow-up on MRI of the abdomen to assess pancreatic lesion Start Zepbound 2.5 mg Severance candidate for dual incretin given prediabetic state and metabolic syndrome, obesity BMI Total time spent today was 30 minutes of which greater than 50% was spent on coordinating and counseling Patient has been found to be obese with a BMI of (32). Patient has class (1) obesity. We are a board certified obesity and weight management practice Patient has trialed behavioral modification, dietary restrictions and exercise for a minimum of 6 months The most recent [place] [employer] and [place] [employer] guidelines recommend patients who have overweight BMI or obesity BMI, who also have metabolic syndrome, prediabetes, HLD, and other comorbidities or at risk of developing type 2 diabetes should aim for a weight loss goal of at least 10% of the baseline body weight Patient counseled regarding effects of GLP/GIP-1 agonists, and other FDA approved wgt loss meds with regards to a multifactorial approach of weight loss as mentioned above and not solely appetite suppression. We have discussed the mechanism of GLP-1's/GIP, dual incretins, appetitite suppressants I think this would be fantastic option for her given her metabolic workup and body composition We have discussed the risks and benefits and side effects including/and not limited to Sarcopenia, intestinal obstruction, constipation, nausea, lethargy, headache Discussed importance of protein consumption for muscle maintenance as well as strength and resistance training ,probiotics, B12 complex biotin , iron and other nutrients, To help avoid telogen effluvium We have discussed the lifelong requirement of nutritional supplementation And adherence to an exercise regimen as well as importance of follow-up We did discuss the neurohormonal changes that are occurring with these medications and Need for long-term Continued usage Obesity is a chronic metabolic disease with multiple etiologies including genetic, metabolic, biochemical, intestinal biome related treatment of obesity after weight gain or after weight loss has stopped is justified Studies have shown that there is a decrease in the bodies metabolic rate and increase in hunger The patient understands and agrees There is no history of medullary thyroid cancer or multiple endocrine neoplasia There is also no history of cardiovascular disease, hypertension, palpitations, or arrhythmias In the setting of potential stimulant/amphetamin e use such as phentermine We have also discussed risks and benefits, and the use of compounded medications to help offset the national shortages as well as financial implications vs trade name drugs Patient was reassured and welcomed to the practice. We discussed that we stress a hollistic medical approach with emphasis on lifestyle modification. Patient was informed that a healthy lifestyle with exercise and good eating habits can help reduce his risk of medical complications. He is explained that obesity increases his risk of diabetes, cardiovascular disease, or organ damage. We spent a lot of time discussing the relationship between food, exercise, sleep, mental health and obesity. Patient was counseled on the importance EATING local, organic food when possible. Patient was educated on clean 15 and dirty dozen. I provided information about reading books called The Food Rules by Mike Gaming and Eat Fat Get Lean by Dr Mik Mckeon. Self education is important in the journey for weight management. Encourage good sleep hygiene Optimize sleep/wake cycles 6-8 hours nightly Keep lights on his stimulus during the day Darkroom and minimize nighttime interruptions Continue melatonin, other sleep aid medications Patient was offered diagnostic testing. We want to measure visceral adiposity, advanced body composition, adverse lipids, fatty acid balance, risk for heart disease and atherosclerosis, markers of inflammation and genetic susceptibility. Patient was counseled on weight management and was advised to lose weight using A. Meal Replacement Products We discussed the lifelong requirement of nutritional supplementation and adherence to an exercise regimen as well as importance of dietary follow-up Patient was educated on the replacement products called optifast. This is a good way of taking fixed amount of calories. It has been shown in studies to be ineffective weight management tool. We also recommend maintaining adequate protein intake and muscle composition, 1.5mg/kg This however has to be coupled with lifestyle intervention as well as laboratory data and EKG monitoring. It is impossible to know how a person will tolerate complete meal replacement. The side effects of meal replacement and weight loss could include syncopal attacks, dizziness, gallstones, potential cholecystectomy, possible heart attack and even . The benefits of meal replacement would be potential weight loss but no guarantees can be made. Meal replacement products are not covered by insurance. Once the patient has bought these products we cannot return them B. Lifestyle management which includes several strategies as below 1. Eat a low carbohydrate good fat good protein diet. Eliminate refined carbohydrates from the diet. Continue blood sugar and sugared beverages. Eat local organic when possible. Cook your own meals. Read food labels. None about healthy snacks. Portion control and food with low glycemic index 2. Exercise regularly. Try to get at least 6000 steps a day. Use a predominant to track activity level. Consider using apps like Engezni, Geckoboardpal, lose it, stick as needed for self-monitoring and weight management. Consider group exercises. Consider hiring a personal lines account executive. Regular exercise is mercado to sustainable health and prevents as a buffer against weight regain 3. Sleep is most important for healing. Tried to sleep at least 8 hours a night. A good quality sleep needs a sleep ritual with ideal room temperature of around 68. It might help to take a shower and have no electronics in the room and sleep in a very dark room without artificial light. Start her sleep routine and get up early in the morning and go to bed on time ASCVD is a stepwise approach for all adult patients, including those with known ASCVD This risk estimate is a standardized guideline to predict risk and recommend management strategies for those at risk of ASCVD Risk of cardiovascular event (Coronary or stroke or nonfatal ME or stroke) In the next 10 years We discussed the role of cholesterol and atherosclerosis. Cholesterols broken down into some particles. Cholesterol very important for her body and has an important role in the synthesis of various hormones and neurotransmitters. However, today's cholesterol can have potential complications. Small density LDL particles that are oxidized or particularly dangerous. HDL cholesterol can have a protective effect. Elevated triglycerides levels are also dangerous. An elevated triglyceride and HDL ratio could be a sign of insulin resistance. Statins, fibrates, niacin, fish oil, DHEA, can be beneficial in treatment of dyslipidemia. Lifestyle modification with exercise and appropriate nutrition can decrease the risk of atherosclerosis due to dyslipidemia. Lowering low-density lipoprotein cholesterol (LDL-C) via lifestyle change or pharmacologic therapy can reduce the risk of atherosclerotic cardiovascular disease (ASCVD) in people without established CVD. This approach to CVD prevention is called primary prevention. The rationale for LDL-C reduction is based upon observational and clinical trial evidence that lowering of LDL-C in patients across a broad range of LDL-C levels reduces a patient's risk of CVD. CVD in this context refers to fatal or nonfatal myocardial infarction, acute coronary syndrome, sudden cardiac , coronary artery revascularization, stroke, and peripheral arterial disease. In all patients, a healthy diet, physical activity, and maintaining a healthy weight are all important for overall health and should be pursued apart from whether they reduce LDL-C. Therefore, we recommend that all patients with high LDL-C undergo lifestyle modifications of aerobic exercise and potential statin, , Zetia, PCSK9 drugs. We discussed in detail the management of diabetes mellitus. Emphasis was paid on nutrition, low carbohydrate diet with good fat and protein sources, fruits and vegetables was discussed. Exercise was recommended. Incorporation of daily walking into a routine was discussed. A pedometer goal of 10,000 steps was discussed. Management of diabetes mellitus along with medications to treat the condition was discussed. Importance of diabetic foot exam, diabetic eye exam, urine microalbumin analysis annually was discussed. Side effects of diabetic medications were discussed again. Patient agrees to take medications as prescribed and comply with lifestyle modifications. Of note, some information is being carried forward from prior records for informational purposes only and is being cited so that efficiency, safety and quality of the patient's care is not compromised This note was prepared using voice recognition software and direct typing Please excuse inadvertent solution sales senior executive or typing errors, or uncorrected word substitutions Although every attempt has been made by the provider to proofread this document, occasional misspellings and typographical errors may still be present Due to the previous pandemic, and the use of personal protective equipment (PPE) This may decrease voice recognition accuracy Inadvertent solution sales senior executive errors may occur 03/20/2024 Prediabetes (ICD-10 - R73.03) #Weight Management 03/19/2024 incr Zepbound to 5 mg Severance candidate for dual incretin given prediabetic state and metabolic syndrome, obesity BMI Total time spent today was 30 minutes of which greater than 50% was spent on coordinating and counseling Patient has been found to be obese with a BMI of (31). Patient has class (1) obesity. We are a board certified obesity and weight management practice Patient has trialed behavioral modification, dietary restrictions and exercise for a minimum of 6 months The most recent [place] [employer]in[employer] and [place] [employer] guidelines recommend patients who have overweight BMI or obesity BMI, who also have metabolic syndrome, prediabetes, HLD, and other comorbidities or at risk of developing type 2 diabetes should aim for a weight loss goal of at least 10% of the baseline body weight Patient counseled regarding effects of GLP/GIP-1 agonists, and other FDA approved wgt loss meds with regards to a multifactorial approach of weight loss as mentioned above and not solely appetite suppression. Of note, some information is being carried forward from prior records for informational purposes only and is being cited so that efficiency, safety and quality of the patient's care is not compromised This note was prepared using voice recognition software and direct typing Please excuse inadvertent solution sales senior executive or typing errors, or uncorrected word substitutions Although every attempt has been made by the provider to proofread this document, occasional misspellings and typographical errors may still be present Due to the previous pandemic, and the use of personal protective equipment (PPE) This may decrease voice recognition accuracy Inadvertent solution sales senior executive errors may occur 02/13/2024 Pancreatic lesion (ICD-10 - K86.9) Acute Concerns/Problem List: 02/13/2024 Labs otherwise stable *We will follow-up and make sure MRI of the abdomen with contrast to assess pancreatic lesion gets done Interested in formal weight management consult this will be arranged Will see him back in 6 months with labs ASCVD is a stepwise approach for all adult patients, including those with known ASCVD This risk estimate is a standardized guideline to predict risk and recommend management strategies for those at risk of ASCVD Risk of cardiovascular event (Coronary or stroke or nonfatal ME or stroke) In the next 10 years We discussed the role of cholesterol and atherosclerosis. Cholesterols broken down into some particles. Cholesterol very important for her body and has an important role in the synthesis of various hormones and neurotransmitters. However, today's cholesterol can have potential complications. Small density LDL particles that are oxidized or particularly dangerous. HDL cholesterol can have a protective effect. Elevated triglycerides levels are also dangerous. An elevated triglyceride and HDL ratio could be a sign of insulin resistance. Statins, fibrates, niacin, fish oil, DHEA, can be beneficial in treatment of dyslipidemia. Lifestyle modification with exercise and appropriate nutrition can decrease the risk of atherosclerosis due to dyslipidemia. Lowering low-density lipoprotein cholesterol (LDL-C) via lifestyle change or pharmacologic therapy can reduce the risk of atherosclerotic cardiovascular disease (ASCVD) in people without established CVD. This approach to CVD prevention is called primary prevention. The rationale for LDL-C reduction is based upon observational and clinical trial evidence that lowering of LDL-C in patients across a broad range of LDL-C levels reduces a patient's risk of CVD. CVD in this context refers to fatal or nonfatal myocardial infarction, acute coronary syndrome, sudden cardiac , coronary artery revascularization, stroke, and peripheral arterial disease. In all patients, a healthy diet, physical activity, and maintaining a healthy weight are all important for overall health and should be pursued apart from whether they reduce LDL-C. Therefore, we recommend that all patients with high LDL-C undergo lifestyle modifications of aerobic exercise and potential statin, , Zetia, PCSK9 drugs. We discussed in detail the management of diabetes mellitus. Emphasis was paid on nutrition, low carbohydrate diet with good fat and protein sources, fruits and vegetables was discussed. Exercise was recommended. Incorporation of daily walking into a routine was discussed. A pedometer goal of 10,000 steps was discussed. Management of diabetes mellitus along with medications to treat the condition was discussed. Importance of diabetic foot exam, diabetic eye exam, urine microalbumin analysis annually was discussed. Side effects of diabetic medications were discussed again. Patient agrees to take medications as prescribed and comply with lifestyle modifications. Of note, some information is being carried forward from prior records for informational purposes only and is being cited so that efficiency, safety and quality of the patient's care is not compromised This note was prepared using voice recognition software and direct typing Please excuse inadvertent solution sales senior executive or typing errors, or uncorrected word substitutions Although every attempt has been made by the provider to proofread this document, occasional misspellings and typographical errors may still be present Due to the previous pandemic, and the use of personal protective equipment (PPE) This may decrease voice recognition accuracy Inadvertent solution sales senior executive errors may occur 02/21/2024 Prediabetes (ICD-10 - R73.03) #Weight Management 02/21/2024 Follow-up on MRI of the abdomen to assess pancreatic lesion Start Zepbound 2.5 mg Severance candidate for dual incretin given prediabetic state and metabolic syndrome, obesity BMI Total time spent today was 30 minutes of which greater than 50% was spent on coordinating and counseling Patient has been found to be obese with a BMI of (32). Patient has class (1) obesity. We are a board certified obesity and weight management practice Patient has trialed behavioral modification, dietary restrictions and exercise for a minimum of 6 months The most recent [place] [employer]in[employer] and [place] [employer] guidelines recommend patients who have overweight BMI or obesity BMI, who also have metabolic syndrome, prediabetes, HLD, and other comorbidities or at risk of developing type 2 diabetes should aim for a weight loss goal of at least 10% of the baseline body weight Patient counseled regarding effects of GLP/GIP-1 agonists, and other FDA approved wgt loss meds with regards to a multifactorial approach of weight loss as mentioned above and not solely appetite suppression. We have discussed the mechanism of GLP-1's/GIP, dual incretins, appetitite suppressants I think this would be fantastic option for her given her metabolic workup and body composition We have discussed the risks and benefits and side effects including/and not limited to Sarcopenia, intestinal obstruction, constipation, nausea, lethargy, headache Discussed importance of protein consumption for muscle maintenance as well as strength and resistance training ,probiotics, B12 complex biotin , iron and other nutrients, To help avoid telogen effluvium We have discussed the lifelong requirement of nutritional supplementation And adherence to an exercise regimen as well as importance of follow-up We did discuss the neurohormonal changes that are occurring with these medications and Need for long-term Continued usage Obesity is a chronic metabolic disease with multiple etiologies including genetic, metabolic, biochemical, intestinal biome related treatment of obesity after weight gain or after weight loss has stopped is justified Studies have shown that there is a decrease in the bodies metabolic rate and increase in hunger The patient understands and agrees There is no history of medullary thyroid cancer or multiple endocrine neoplasia There is also no history of cardiovascular disease, hypertension, palpitations, or arrhythmias In the setting of potential stimulant/amphetamin e use such as phentermine We have also discussed risks and benefits, and the use of compounded medications to help offset the national shortages as well as financial implications vs trade name drugs Patient was reassured and welcomed to the practice. We discussed that we stress a hollistic medical approach with emphasis on lifestyle modification. Patient was informed that a healthy lifestyle with exercise and good eating habits can help reduce his risk of medical complications. He is explained that obesity increases his risk of diabetes, cardiovascular disease, or organ damage. We spent a lot of time discussing the relationship between food, exercise, sleep, mental health and obesity. Patient was counseled on the importance EATING local, organic food when possible. Patient was educated on clean 15 and dirty dozen. I provided information about reading books called The Food Rules by Mike Gaming and Eat Fat Get Lean by Dr Mik Mckeon. Self education is important in the journey for weight management. Encourage good sleep hygiene Optimize sleep/wake cycles 6-8 hours nightly Keep lights on his stimulus during the day Darkroom and minimize nighttime interruptions Continue melatonin, other sleep aid medications Patient was offered diagnostic testing. We want to measure visceral adiposity, advanced body composition, adverse lipids, fatty acid balance, risk for heart disease and atherosclerosis, markers of inflammation and genetic susceptibility. Patient was counseled on weight management and was advised to lose weight using A. Meal Replacement Products We discussed the lifelong requirement of nutritional supplementation and adherence to an exercise regimen as well as importance of dietary follow-up Patient was educated on the replacement products called optifast. This is a good way of taking fixed amount of calories. It has been shown in studies to be ineffective weight management tool. We also recommend maintaining adequate protein intake and muscle composition, 1.5mg/kg This however has to be coupled with lifestyle intervention as well as laboratory data and EKG monitoring. It is impossible to know how a person will tolerate complete meal replacement. The side effects of meal replacement and weight loss could include syncopal attacks, dizziness, gallstones, potential cholecystectomy, possible heart attack and even . The benefits of meal replacement would be potential weight loss but no guarantees can be made. Meal replacement products are not covered by insurance. Once the patient has bought these products we cannot return them B. Lifestyle management which includes several strategies as below 1. Eat a low carbohydrate good fat good protein diet. Eliminate refined carbohydrates from the diet. Continue blood sugar and sugared beverages. Eat local organic when possible. Cook your own meals. Read food labels. None about healthy snacks. Portion control and food with low glycemic index 2. Exercise regularly. Try to get at least 6000 steps a day. Use a predominant to track activity level. Consider using apps like En[employer]ni, Geckoboardpal, lose it, stick as needed for self-monitoring and weight management. Consider group exercises. Consider hiring a personal lines account executive. Regular exercise is mercado to sustainable health and prevents as a buffer against weight regain 3. Sleep is most important for healing. Tried to sleep at least 8 hours a night. A good quality sleep needs a sleep ritual with ideal room temperature of around 68. It might help to take a shower and have no electronics in the room and sleep in a very dark room without artificial light. Start her sleep routine and get up early in the morning and go to bed on time ASCVD is a stepwise approach for all adult patients, including those with known ASCVD This risk estimate is a standardized guideline to predict risk and recommend management strategies for those at risk of ASCVD Risk of cardiovascular event (Coronary or stroke or nonfatal ME or stroke) In the next 10 years We discussed the role of cholesterol and atherosclerosis. Cholesterols broken down into some particles. Cholesterol very important for her body and has an important role in the synthesis of various hormones and neurotransmitters. However, today's cholesterol can have potential complications. Small density LDL particles that are oxidized or particularly dangerous. HDL cholesterol can have a protective effect. Elevated triglycerides levels are also dangerous. An elevated triglyceride and HDL ratio could be a sign of insulin resistance. Statins, fibrates, niacin, fish oil, DHEA, can be beneficial in treatment of dyslipidemia. Lifestyle modification with exercise and appropriate nutrition can decrease the risk of atherosclerosis due to dyslipidemia. Lowering low-density lipoprotein cholesterol (LDL-C) via lifestyle change or pharmacologic therapy can reduce the risk of atherosclerotic cardiovascular disease (ASCVD) in people without established CVD. This approach to CVD prevention is called primary prevention. The rationale for LDL-C reduction is based upon observational and clinical trial evidence that lowering of LDL-C in patients across a broad range of LDL-C levels reduces a patient's risk of CVD. CVD in this context refers to fatal or nonfatal myocardial infarction, acute coronary syndrome, sudden cardiac , coronary artery revascularization, stroke, and peripheral arterial disease. In all patients, a healthy diet, physical activity, and maintaining a healthy weight are all important for overall health and should be pursued apart from whether they reduce LDL-C. Therefore, we recommend that all patients with high LDL-C undergo lifestyle modifications of aerobic exercise and potential statin, , Zetia, PCSK9 drugs. We discussed in detail the management of diabetes mellitus. Emphasis was paid on nutrition, low carbohydrate diet with good fat and protein sources, fruits and vegetables was discussed. Exercise was recommended. Incorporation of daily walking into a routine was discussed. A pedometer goal of 10,000 steps was discussed. Management of diabetes mellitus along with medications to treat the condition was discussed. Importance of diabetic foot exam, diabetic eye exam, urine microalbumin analysis annually was discussed. Side effects of diabetic medications were discussed again. Patient agrees to take medications as prescribed and comply with lifestyle modifications. Of note, some information is being carried forward from prior records for informational purposes only and is being cited so that efficiency, safety and quality of the patient's care is not compromised This note was prepared using voice recognition software and direct typing Please excuse inadvertent solution sales senior executive or typing errors, or uncorrected word substitutions Although every attempt has been made by the provider to proofread this document, occasional misspellings and typographical errors may still be present Due to the previous pandemic, and the use of personal protective equipment (PPE) This may decrease voice recognition accuracy Inadvertent solution sales senior executive errors may occur 04/24/2024 Prediabetes (ICD-10 - R73.03) #Weight Management 04/24/2024 cont Zepbound 5 mg thriving Total time spent today was 30 minutes of which greater than 50% was spent on coordinating and counseling Patient has been found to be obese with a BMI of (30). Patient has class (1) obesity. We are a board certified obesity and weight management practice Patient has trialed behavioral modification, dietary restrictions and exercise for a minimum of 6 months The most recent [place] [employer] and [place] [employer] guidelines recommend patients who have overweight BMI or obesity BMI, who also have metabolic syndrome, prediabetes, HLD, and other comorbidities or at risk of developing type 2 diabetes should aim for a weight loss goal of at least 10% of the baseline body weight Patient counseled regarding effects of GLP/GIP-1 agonists, and other FDA approved wgt loss meds with regards to a multifactorial approach of weight loss as mentioned above and not solely appetite suppression. Of note, some information is being carried forward from prior records for informational purposes only and is being cited so that efficiency, safety and quality of the patient's care is not compromised This note was prepared using voice recognition software and direct typing Please excuse inadvertent solution sales senior executive or typing errors, or uncorrected word substitutions Although every attempt has been made by the provider to proofread this document, occasional misspellings and typographical errors may still be present Due to the previous pandemic, and the use of personal protective equipment (PPE) This may decrease voice recognition accuracy Inadvertent solution sales senior executive errors may occur 05/22/2024 Pancreatic lesion (ICD-10 - K86.9) #Weight Management 05/22/2024 Increased to 7.5 mg of Zepbound Total time spent today was 30 minutes of which greater than 50% was spent on coordinating and counseling Patient has been found to be overweight with a BMI of (29). Patient has overweight class per BMI standards We are a board certified obesity and weight management practice Patient has trialed behavioral modification, dietary restrictions and exercise for a minimum of 6 months The most recent [place] [employer] and [place] [employer] guidelines recommend patients who have overweight BMI or obesity BMI, who also have metabolic syndrome, prediabetes, HLD, and other comorbidities or at risk of developing type 2 diabetes should aim for a weight loss goal of at least 10% of the baseline body weight Patient counseled regarding effects of GLP/GIP-1 agonists, and other FDA approved wgt loss meds with regards to a multifactorial approach of weight loss as mentioned above and not solely appetite suppression. Of note, some information is being carried forward from prior records for informational purposes only and is being cited so that efficiency, safety and quality of the patient's care is not compromised This note was prepared using voice recognition software and direct typing Please excuse inadvertent solution sales senior executive or typing errors, or uncorrected word substitutions Although every attempt has been made by the provider to proofread this document, occasional misspellings and typographical errors may still be present Due to the previous pandemic, and the use of personal protective equipment (PPE) This may decrease voice recognition accuracy Inadvertent solution sales senior executive errors may occur 06/26/2024 Pancreatic lesion (ICD-10 - K86.9) #Weight Management 06/26/2024oronary calcium CT score referral _update comprehensive labs Continue current dosing at 7.5 mg Increased to 7.5 mg of Zepbound Total time spent today was 30 minutes of which greater than 50% was spent on coordinating and counseling Patient has been found to be overweight with a BMI of (29). Patient has overweight class per BMI standards Of note, some information is being carried forward from prior records for informational purposes only and is being cited so that efficiency, safety and quality of the patient's care is not compromised This note was prepared using voice recognition software and direct typing Please excuse inadvertent solution sales senior executive or typing errors, or uncorrected word substitutions Although every attempt has been made by the provider to proofread this document, occasional misspellings and typographical errors may still be present Due to the previous pandemic, and the use of personal protective equipment (PPE) This may decrease voice recognition accuracy Inadvertent solution sales senior executive errors may occur 07/30/2024 Pancreatic lesion (ICD-10 - K86.9) #Weight Management 07/30/2024 _update labs this morning Nutritional and exercise counselling provided Continue Zepbound 7.5mg inj Coroary calcium CT on 07/09/24 revealing score 14.9 with calcium deposits mostly in the LAD artery. to cont statin F/U in 6 weeks Total time spent today was 30 minutes of which greater than 50% was spent on coordinating and counseling Patient has been found to be overweight with a BMI of (29). Patient has overweight class per BMI standards Of note, some information is being carried forward from prior records for informational purposes only and is being cited so that efficiency, safety and quality of the patient's care is not compromised This note was prepared using voice recognition software and direct typing Please excuse inadvertent solution sales senior executive or typing errors, or uncorrected word substitutions Although every attempt has been made by the provider to proofread this document, occasional misspellings and typographical errors may still be present Due to the previous pandemic, and the use of personal protective equipment (PPE) This may decrease voice recognition accuracy Inadvertent solution sales senior executive errors may occur 08/28/2024 Pancreatic lesion (ICD-10 - K86.9) #Weight Management 08/28/[address] score @ 14.9, Lipids look good at goal Continue current dosing at Zepbound 7.5 mg stress echo pulm for PFT's Total time spent today was 30 minutes of which greater than 50% was spent on coordinating and counseling Patient has been found to be overweight with a BMI of (29). Patient has overweight class per BMI standards Of note, some information is being carried forward from prior records for informational purposes only and is being cited so that efficiency, safety and quality of the patient's care is not compromised This note was prepared using voice recognition software and direct typing Please excuse inadvertent solution sales senior executive or typing errors, or uncorrected word substitutions Although every attempt has been made by the provider to proofread this document, occasional misspellings and typographical errors may still be present Due to the previous pandemic, and the use of personal protective equipment (PPE) This may decrease voice recognition accuracy Inadvertent solution sales senior executive errors may occur 10/09/2024 Pancreatic lesion (ICD-10 - K86.9) Manpreet is a pleasant 54-year-old male with a past medical history hyperlipidemia weight gain who presents to the office today for weight management follow-up currently on Zepbound 7.5 mg 10/09/2024: BMI 28.3, weight 208.9 patient last reading at 218 on August 28, 2024. Congratulated on 10 pounds of fat loss, however patient did lose 4 pounds of muscle, therefore educated to increase his cardiovascular exercise with weightlifting.Contin ue Zepbound 7.5 mg, patient would not benefit from increase in dose as he has not been increasing his muscle mass. #Shortness of breath: Patient states he intermittently experiences shortness of breath, patient would benefit from pulmonary function testing completed by pulmonology and a stress echocardiogram. Will order stress echocardiogram today and place referral for pulmonary function testing today. Patient is here for weight management followup. We focused on significance of healthy lifestyle changes. We talked about need to track steps, work on portion control, read food labels, get adequate sleep, give adequate rest of the body, meditate, frequent nutritious meals including vegetables and healthy choices of meat and elimination of refined carbohydrates. We also talked about mindfulness and mindful eating. Particular focus was on lifestyle Total time spent was 30 minutes with greater than 50% spent on counseling and coordinating care All questions have been answered to patient's satisfaction. Patient verbalized understanding of diagnosis and treatments explained. Advised to call sooner prior to next visit it any questions/concerns arise. Case discussed with Tk SMATR who reviewed the assessment and plan. Chart, medications, labs, vital signs reviewed. Dictation was accomplished with the use of [employer] voice recognition software, which is prone to medical misidentifications and grammatical errors. This are unintentional and the practitioner does try to identify and correct these, but some could still be present. Please do not hesitate to contact practitioner for clarification. 10/09/2024 MEI (dyspnea on exertion) (ICD-10 - R06.09) Manpreet is a pleasant 54-year-old male with a past medical history hyperlipidemia weight gain who presents to the office today for weight management follow-up currently on Zepbound 7.5 mg 10/09/2024: BMI 28.3, weight 208.9 patient last reading at 218 on August 28, 2024. Congratulated on 10 pounds of fat loss, however patient did lose 4 pounds of muscle, therefore educated to increase his cardiovascular exercise with weightlifting.Contin ue Zepbound 7.5 mg, patient would not benefit from increase in dose as he has not been increasing his muscle mass. #Shortness of breath: Patient states he intermittently experiences shortness of breath, patient would benefit from pulmonary function testing completed by pulmonology and a stress echocardiogram. Will order stress echocardiogram today and place referral for pulmonary function testing today. Patient is here for weight management followup. We focused on significance of healthy lifestyle changes. We talked about need to track steps, work on portion control, read food labels, get adequate sleep, give adequate rest of the body, meditate, frequent nutritious meals including vegetables and healthy choices of meat and elimination of refined carbohydrates. We also talked about mindfulness and mindful eating. Particular focus was on lifestyle Total time spent was 30 minutes with greater than 50% spent on counseling and coordinating care All questions have been answered to patient's satisfaction. Patient verbalized understanding of diagnosis and treatments explained. Advised to call sooner prior to next visit it any questions/concerns arise. Case discussed with Tk SMART who reviewed the assessment and plan. Chart, medications, labs, vital signs reviewed. Dictation was accomplished with the use of [employer] voice recognition software, which is prone to medical misidentifications and grammatical errors. This are unintentional and the practitioner does try to identify and correct these, but some could still be present. Please do not hesitate to contact practitioner for clarification. 08/28/2024 Prediabetes (ICD-10 - R73.03) #Weight Management 08/28/[address] score @ 14.9, Lipids look good at goal Continue current dosing at Zepbound 7.5 mg stress echo pulm for PFT's Total time spent today was 30 minutes of which greater than 50% was spent on coordinating and counseling Patient has been found to be overweight with a BMI of (29). Patient has overweight class per BMI standards Of note, some information is being carried forward from prior records for informational purposes only and is being cited so that efficiency, safety and quality of the patient's care is not compromised This note was prepared using voice recognition software and direct typing Please excuse inadvertent solution sales senior executive or typing errors, or uncorrected word substitutions Although every attempt has been made by the provider to proofread this document, occasional misspellings and typographical errors may still be present Due to the previous pandemic, and the use of personal protective equipment (PPE) This may decrease voice recognition accuracy Inadvertent solution sales senior executive errors may occur 07/30/2024 Prediabetes (ICD-10 - R73.03) #Weight Management 07/30/2024 _update labs this morning Nutritional and exercise counselling provided Continue Zepbound 7.5mg inj Coroary calcium CT on 07/09/24 revealing score 14.9 with calcium deposits mostly in the LAD artery. to cont statin F/U in 6 weeks Total time spent today was 30 minutes of which greater than 50% was spent on coordinating and counseling Patient has been found to be overweight with a BMI of (29). Patient has overweight class per BMI standards Of note, some information is being carried forward from prior records for informational purposes only and is being cited so that efficiency, safety and quality of the patient's care is not compromised This note was prepared using voice recognition software and direct typing Please excuse inadvertent solution sales senior executive or typing errors, or uncorrected word substitutions Although every attempt has been made by the provider to proofread this document, occasional misspellings and typographical errors may still be present Due to the previous pandemic, and the use of personal protective equipment (PPE) This may decrease voice recognition accuracy Inadvertent solution sales senior executive errors may occur 06/26/2024 Prediabetes (ICD-10 - R73.03) #Weight Management 06/26/2024oronary calcium CT score referral _update comprehensive labs Continue current dosing at 7.5 mg Increased to 7.5 mg of Zepbound Total time spent today was 30 minutes of which greater than 50% was spent on coordinating and counseling Patient has been found to be overweight with a BMI of (29). Patient has overweight class per BMI standards Of note, some information is being carried forward from prior records for informational purposes only and is being cited so that efficiency, safety and quality of the patient's care is not compromised This note was prepared using voice recognition software and direct typing Please excuse inadvertent solution sales senior executive or typing errors, or uncorrected word substitutions Although every attempt has been made by the provider to proofread this document, occasional misspellings and typographical errors may still be present Due to the previous pandemic, and the use of personal protective equipment (PPE) This may decrease voice recognition accuracy Inadvertent solution sales senior executive errors may occur 05/22/2024 Prediabetes (ICD-10 - R73.03) #Weight Management 05/22/2024 Increased to 7.5 mg of Zepbound Total time spent today was 30 minutes of which greater than 50% was spent on coordinating and counseling Patient has been found to be overweight with a BMI of (29). Patient has overweight class per BMI standards We are a board certified obesity and weight management practice Patient has trialed behavioral modification, dietary restrictions and exercise for a minimum of 6 months The most recent [place] [employer]ocrin[employer] and [place] [employer] guidelines recommend patients who have overweight BMI or obesity BMI, who also have metabolic syndrome, prediabetes, HLD, and other comorbidities or at risk of developing type 2 diabetes should aim for a weight loss goal of at least 10% of the baseline body weight Patient counseled regarding effects of GLP/GIP-1 agonists, and other FDA approved wgt loss meds with regards to a multifactorial approach of weight loss as mentioned above and not solely appetite suppression. Of note, some information is being carried forward from prior records for informational purposes only and is being cited so that efficiency, safety and quality of the patient's care is not compromised This note was prepared using voice recognition software and direct typing Please excuse inadvertent solution sales senior executive or typing errors, or uncorrected word substitutions Although every attempt has been made by the provider to proofread this document, occasional misspellings and typographical errors may still be present Due to the previous pandemic, and the use of personal protective equipment (PPE) This may decrease voice recognition accuracy Inadvertent solution sales senior executive errors may occur 08/28/2024 MEI (dyspnea on exertion) (ICD-10 - R06.09) #Weight Management 08/28/[address] score @ 14.9, Lipids look good at goal Continue current dosing at Zepbound 7.5 mg stress echo pulm for PFT's Total time spent today was 30 minutes of which greater than 50% was spent on coordinating and counseling Patient has been found to be overweight with a BMI of (29). Patient has overweight class per BMI standards Of note, some information is being carried forward from prior records for informational purposes only and is being cited so that efficiency, safety and quality of the patient's care is not compromised This note was prepared using voice recognition software and direct typing Please excuse inadvertent solution sales senior executive or typing errors, or uncorrected word substitutions Although every attempt has been made by the provider to proofread this document, occasional misspellings and typographical errors may still be present Due to the previous pandemic, and the use of personal protective equipment (PPE) This may decrease voice recognition accuracy Inadvertent solution sales senior executive errors may occur 07/31/2024 #Weight Management 07/31/[address] score referral _update comprehensive labs Continue current dosing at 7.5 mg Total time spent today was 30 minutes of which greater than 50% was spent on coordinating and counseling Patient has been found to be overweight with a BMI of (29). Patient has overweight class per BMI standards Of note, some information is being carried forward from prior records for informational purposes only and is being cited so that efficiency, safety and quality of the patient's care is not compromised This note was prepared using voice recognition software and direct typing Please excuse inadvertent solution sales senior executive or typing errors, or uncorrected word substitutions Although every attempt has been made by the provider to proofread this document, occasional misspellings and typographical errors may still be present Due to the previous pandemic, and the use of personal protective equipment (PPE) This may decrease voice recognition accuracy Inadvertent solution sales senior executive errors may occur Plan Of Treatment Pending Test Test Name Order Date MRI : Abdomen with Contrast 08/08/2023 MRI : Abdomen with and without Contrast 02/16/2024 25OH VITAMIN D 06/06/2023 CBC (COMPLETE BLOOD COUNT) WITH DIFF CBC (COMPLETE BLOOD COUNT) WITH DIFF 12/2024 COMPREHENSIVE METABOLIC PANEL 06/26/2024 COMPREHENSIVE METABOLIC PANEL 06/06/2023 FSH 08/08/2023 HEMOGLOBIN A1C 06/06/2023 HEMOGLOBIN A1C 06/26/2024 LH 08/08/2023 LIPID PANEL 06/06/2023 LIPID PANEL 06/26/2024 LIPID PANEL 08/08/2023 SEX HORMONE BINDING GLOBULIN (SHBG) 07/18 T4, TOTAL 06/26/2024 T4, TOTAL 08/08/2023 TSH 06/06/2023 TSH 08/08/2023 TSH 06/26/2024 URINALYSIS W/REFLEX CULTURE 06/06/2023 Thyroglobulin Antibody 08/08/2023 MRI Abdomen w Contrast 10/23/2023 LIPID PANEL, STANDARD 02/13/2024 COMPREHENSIVE METABOLIC PANEL 02/13/2024 CBC (INCLUDES DIFF/PLT) 02/13/2024 URINALYSIS, COMPLETE 02/13/2024 URINALYSIS REFLEX 06/26/2024 THYROID PEROXIDASE ANTIBODIES 08/08/2023 HEMOGLOBIN A1c 02/13/2024 PSA (FREE AND TOTAL) 02/13/2024 PSA (FREE AND TOTAL) 06/26/2024 T4, FREE 02/13/2024 TSH 02/13/2024 VITAMIN D, 1,25 DIHYDROXY LC/MS/MS 06/26 Next Appt Details Provider Name:DANNI DARBY, 11/13/2024 09:30:00 AM, [address], [place], [address], Insurance Providers Payer Name Payer Address Payer Phone Subscriber Number Group Number Insured Name Patient Relationship to Insured Coverage Start Date Coverage End Date [employer] [address] [place] [address] [phone] [id number] Rashad Dominguez Self - patient is the insured Medical (General) History Medical History History ICD Code Hyperlipemia, mixed E78.2
== END 2024-11-02 15:40 | disposition home or self-care (01) ==
PROVIDERS: PCP Nurse Practitioner Acute Care; Visit Provider Internal Medicine
DX: R06.09 Other forms of dyspnea (principal); E66.811 Obesity, class 1
CPT/HCPCS: 99204

== ENCOUNTER 2024-11-02 14:40 | Outpatient (REF) | payer OTHER, SELFPAY ==
--- NOTE | ~2024-11-02 | XR_ITS ---
EXAMINATION: XR CHEST CLINICAL INFORMATION: R06.09 - Other forms of dyspnea COMPARISON: None available. TECHNIQUE: 2 views of the chest were obtained. FINDINGS: The cardiac, hilar, and mediastinal contours are normal. The lungs are clear bilaterally. There is no pneumothorax or pleural effusion. There is no focal osseous or soft tissue abnormality. XR/XR chest 2V IMPRESSION: Normal chest. Electronically signed by: Cullen Breen MD 11/02/2024 04:16 PM EDT
[2024-11-02 15:34] LABS: MANUAL DIFF FLAG NO
[2024-11-02 17:08] LABS: Basophils Percent Auto 0.6 % (0-2); Eosinophils Absolute Auto 0.1 X10*3/uL (0.0-0.4); Eosinophils Percent Auto 0.7 % (0-4); Hematocrit 45.1 % (42.0-52.0); Hemoglobin 14.8 g/dl (14.0-18.0); Imm Gran Abs Auto 0.03 X10*3/uL (0.00-0.03); Imm Gran Pct Auto 0.4 % (0.0-0.4); Lymphocytes Absolute Auto 2.5 X10*3/uL (1.2-4.9); Lymphocytes Percent Auto 33.9 % (20-40); Mean Corpuscular HGB Conc 32.8 g/dl (31.0-36.0); Mean Corpuscular Hemoglobin 28.6 pg (27.0-33.0); Mean Corpuscular Volume 87.1 fL (80.0-98.0); Mean Platelet Volume 10.2 fL (9.4-12.4); Monocytes Absolute Auto 0.6 X10*3/uL (0.1-1.2); Monocytes Percent Auto 7.9 % (2-11); Neutrophils Absolute Auto 4.1 x10*3/uL (2.0-8.3); Neutrophils Percent Auto 56.5 % (45-73); Platelet Count 241 X10*3/uL (160-400); Red Blood Count 5.18 X10*6/uL (4.60-5.80); Red Cell Distribution Width 12.2 % (11.0-16.0); White Blood Count 7.2 X10*3/uL (4.8-10.8)
== END 2024-11-02 14:41 | disposition home or self-care (01) ==
LOC: HO.XRAY 14:40
PROVIDERS: PCP Nurse Practitioner Acute Care; Visit Provider Internal Medicine
DX: R06.09 Other forms of dyspnea (principal)
CPT/HCPCS: 36415; 71046; 85025

== ENCOUNTER → 2024-11-02 15:43 | Outpatient (BNV) | payer OTHER, SELFPAY | PROVIDERS: PCP Nurse Practitioner Acute Care; Visit Provider Radiology Diagnostic Radiology | DX: R06.09 Other forms of dyspnea (principal) | CPT/HCPCS: 71046 ==